=== PATIENT | male | born 1935 | race Caucasian/White ===

== ENCOUNTER 2020-07-12 06:48 | Observation (INO) | payer MEDICARE, BC ==
[2020-07-12] MEDS ORDERED: MORPHINE SULFATE 2 MG/ML SYRINGE IVP STA (07:19)
--- NOTE | 2020-07-12 07:25 | ED ---
General Adult HPI - General Chief complaint: Abdominal Pain Stated complaint: Abd Pain Time Seen by Provider: 07/12/20 07:01 Source: EMS Mode of arrival: EMS - History of Present Illness Initial comments: Dictation was produced using [employer] dictation software. please excuse any grammatical, word or spelling errors. This patient was cared for during a federal and state declared state of emergency secondary to Covid 19 Chief Complaint: Patient is an 85-year-old male with recently diagnosed new- onset ascites presents with abdominal pain. History of Present Illness: 85-year-old male. He was seen in the emergency department 5 days ago. At that time patient was evaluated and found to have new-onset ascites. Patient denies any history of liver cirrhosis. He does not have a extensive history of alcohol abuse. 4 days ago he had a paracentesis performed. He also had a CT of the abdomen and pelvis. His imaging was concerning for GI malignancy. He was discharged in stable condition.. He has a standing order for outpatient paracentesis once weekly. Patient states he is barely feels like it's falling again. He did not tell anybody and instead came directly to the emergency department. and patient are anxious about patient's paracentesis cytology results. Patient denies any constitutional symptoms. He reports whole abdominal pain. States the symptoms feel exactly as it did earlier this week just before he had paracentesis performed. The ROS documented in this emergency department record has been reviewed and confirmed by me. Those systems with pertinent positive or negative responses have been documented in the HPI. All other systems are other negative and/or noncontributory. PHYSICAL EXAM: General Impression: Alert and oriented x3, not in acute distress HEENT: Normocephalic atraumatic, extra-ocular movements intact, pupils equal and reactive to light bilaterally, mucous membranes moist. Cardiovascular: Heart regular rate and rhythm Chest: Able to complete full sentences, no retractions, no tachypnea Abdomen: abdomen soft, positive fluid wave, non-distended, no organomegaly Musculoskeletal: Pulses present and equal in all extremities, no peripheral edema Motor: no focal deficits noted Neurological: CN II-XII grossly intact, no focal motor or sensory deficits noted Skin: Intact with no visualized rashes Psych: Normal affect and mood ED course: 85-year-old male recently diagnosed new-onset ascites presents with abdominal pain. Patient and are very anxious about patient's cytology results. They've a follow-up appointment on July 23. Presents today with pain. He does not have any signs or symptoms to suggest bacterial peritonitis. Vital signs upon arrival shows heart rate of 12, rest of vital signs within acceptable limits. Patient is well-appearing at bedside. He does have positive fluid wave in whole abdominal palpatory tenderness. Chart was reviewed. Patient has any water for weekly paracentesis to be performed by interventional radiology. Laboratory evaluation obtained. CBC, metabolic panel is unremarkable. Urinalysis is negative. Everything appears to be at baseline. Patient's well- appearing at bedside. Discussed case with interventional radiology team. They will be able to perform paracentesis at some point today. They did not give me an exact date and time. Case is discussed with oncology who will be on consult. Oncology did not make any specific recommendations. Patient is agreeable for observation admission for symptom medical studies. We'll have oncology consulted for planning. 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 EKG interpretation: Ventricular rate 100, sinus rhythm, TN interval 166, QRS 90, QTC 420. No TN prolongation, no QTC prolongation, no ST or T-wave changes noted. EKG compared to 0, showing no changes. Overall, this EKG is unremarkable - Related Data Home Medications Medication Instructions Recorded Confirmed Bimatoprost [Lumigan .01% Ophth 1 drop RIGHT EYE HS@2100 07/07/20 07/12/20 Soln] Carboxymethylcellulose Sodium 1 drop RIGHT EYE QID 07/07/20 07/12/20 [Refresh Tears] Cholecalciferol [Vitamin D3] 400 unit PO W/BRKFST 07/07/20 07/12/20 Insulin Glargine,Hum.rec.anlog 30 unit SQ HS@209907/07/20 07/12/20 [Lantus Solostar] Magnesium 250 mg PO W/SUPPER 07/07/20 07/12/20 Ubidecarenone [Co Q-10] 100 mg PO W/LUNCH 07/07/20 07/12/20 Vitamin B Complex 1 cap PO W/SUPPER 07/07/20 07/12/20 amLODIPine [Norvasc] 5 mg PO BID-W/MEALS 07/07/20 07/12/20 sitaGLIPtin PHOSPHATE [Januvia] 50 mg PO DAILY 07/07/20 07/12/20 metFORMIN HCL [metFORMIN HCL ER] 500 mg PO BID 07/12/20 07/12/20 Allergies Allergy/AdvReac Type Severity Reaction Status Date / Time No Known Allergies Allergy Verified 07/12/20 07:47 Review of Systems ROS Statement: Those systems with pertinent positive or pertinent negative responses have been documented in the HPI. ROS Other: All systems not noted in ROS Statement are negative. Past Medical History Past Medical History: Diabetes Mellitus, Hypertension Additional Past Medical History / Comment(s): DM2 History of Any Multi-Drug Resistant Organisms: None Reported Past Surgical History: No Surgical Hx Reported Past Psychological History: No Psychological Hx Reported Smoking Status: Never smoker Past Alcohol Use History: None Reported Past Drug Use History: None Reported - Past Family History Mother Additional Family Medical History / Comment(s): from cancer Course Vital Signs 07/12/20 06:49 Temperature 99.5 F Pulse Rate 102 H Respiratory 19 Rate Blood Pressure 147/79 O2 Sat by Pulse 97 Oximetry Medical Decision Making - Lab Data Result diagrams: 07/12/20 07:31 07/12/20 07:31 Lab Results 07/12/20 07/12/20 07/12/20 Range/Units 07:31 07:31 07:31 WBC 9.3 (3.8-10.6) k/uL RBC 4.26 L (4.30-5.90) m/uL Hgb 12.3 L (13.0-17.5) gm/dL Hct 39.0 (39.0-53.0) % MCV 91.5 (80.0-100.0) fL MCH 29.0 (25.0-35.0) pg MCHC 31.7 (31.0-37.0) g/dL RDW 12.8 (11.5-15.5) % Plt Count 324 (150-450) k/uL Neutrophils % 78 % Lymphocytes % 11 % Monocytes % 7 % Eosinophils % 2 % Basophils % 1 % Neutrophils # 7.2 (1.3-7.7) k/uL Lymphocytes # 1.1 (1.0-4.8) k/uL Monocytes # 0.7 (0-1.0) k/uL Eosinophils # 0.2 (0-0.7) k/uL Basophils # 0.1 (0-0.2) k/uL Sodium 130 L (137-145) mmol/L Potassium 4.3 (3.5-5.1) mmol/L Chloride 97 L (98-107) mmol/L Carbon Dioxide 27 (22-30) mmol/L Anion Gap 6 mmol/L BUN 13 (9-20) mg/dL Creatinine 0.92 (0.66-1.25) mg/dL Est GFR (CKD-EPI)AfAm 88 (>60 ml/min/1.73 sqM) Est GFR (CKD-EPI)NonAf 76 (>60 ml/min/1.73 sqM) Glucose 113 H (74-99) mg/dL Plasma Lactic Acid Mathew 0.8 (0.7-2.0) mmol/L Calcium 8.2 L (8.4-10.2) mg/dL Magnesium 1.8 (1.6-2.3) mg/dL Total Bilirubin 0.6 (0.2-1.3) mg/dL AST 37 (17-59) U/L ALT 29 (4-49) U/L Alkaline Phosphatase 51 (38-126) U/L Total Protein 5.4 L (6.3-8.2) g/dL Albumin 2.6 L (3.5-5.0) g/dL Lipase 26 (23-300) U/L Urine Color Urine Appearance (Clear) Urine pH (5.0-8.0) Ur Specific [place] (1.001-1.035) Urine Protein (Negative) Urine Glucose (UA) (Negative) Urine Ketones (Negative) Urine Blood (Negative) Urine Nitrite (Negative) Urine Bilirubin (Negative) Urine Urobilinogen (<2.0) mg/dL Ur Leukocyte Esterase (Negative) 07/12/20 Range/Units 07:31 WBC (3.8-10.6) k/uL RBC (4.30-5.90) m/uL Hgb (13.0-17.5) gm/dL Hct (39.0-53.0) % MCV (80.0-100.0) fL MCH (25.0-35.0) pg MCHC (31.0-37.0) g/dL RDW (11.5-15.5) % Plt Count (150-450) k/uL Neutrophils % % Lymphocytes % % Monocytes % % Eosinophils % % Basophils % % Neutrophils # (1.3-7.7) k/uL Lymphocytes # (1.0-4.8) k/uL Monocytes # (0-1.0) k/uL Eosinophils # (0-0.7) k/uL Basophils # (0-0.2) k/uL Sodium (137-145) mmol/L Potassium (3.5-5.1) mmol/L Chloride (98-107) mmol/L Carbon Dioxide (22-30) mmol/L Anion Gap mmol/L BUN (9-20) mg/dL Creatinine (0.66-1.25) mg/dL Est GFR (CKD-EPI)AfAm (>60 ml/min/1.73 sqM) Est GFR (CKD-EPI)NonAf (>60 ml/min/1.73 sqM) Glucose (74-99) mg/dL Plasma Lactic Acid Mathew (0.7-2.0) mmol/L Calcium (8.4-10.2) mg/dL Magnesium (1.6-2.3) mg/dL Total Bilirubin (0.2-1.3) mg/dL AST (17-59) U/L ALT (4-49) U/L Alkaline Phosphatase (38-126) U/L Total Protein (6.3-8.2) g/dL Albumin (3.5-5.0) g/dL Lipase (23-300) U/L Urine Color Yellow Urine Appearance Clear (Clear) Urine pH 5.5 (5.0-8.0) Ur Specific [place] 1.020 (1.001-1.035) Urine Protein Trace H (Negative) Urine Glucose (UA) Negative (Negative) Urine Ketones Negative (Negative) Urine Blood Negative (Negative) Urine Nitrite Negative (Negative) Urine Bilirubin Negative (Negative) Urine Urobilinogen <2.0 (<2.0) mg/dL Ur Leukocyte Esterase Negative (Negative) Disposition Clinical Impression: Abdominal pain Disposition: ADMITTED IP TO THIS HOSP Condition: Fair Referrals: Caitlin Hines MD [Primary Care Provider] - 1-2 days Decision Time: 08:55
[2020-07-12 07:49] LABS: Basophils # (A) 0.1 k/uL (0-0.2); Basophils % (A) 1 %; Eosinophils # (A) 0.2 k/uL (0-0.7); Eosinophils % (A) 2 %; HGB 12.3 gm/dL (13.0-17.5); Lymphocytes # (A) 1.1 k/uL (1.0-4.8); Lymphocytes % (A) 11 %; MCHC 31.7 g/dL (31.0-37.0); MCV 91.5 fL (80.0-100.0); Mean Platelet Volume 8.1; Monocytes # (A) 0.7 k/uL (0-1.0); Monocytes % (A) 7 %; Neutrophils # (A) 7.2 k/uL (1.3-7.7); Neutrophils % (A) 78 %; Platelet Count 324 k/uL (150-450); RBC 4.26 m/uL (4.30-5.90); RDW 12.8 % (11.5-15.5); WBC 9.3 k/uL (3.8-10.6)
[2020-07-12 07:59] LABS: Appearance,Urine Clear (Clear); Bilirubin,Urine Negative (Negative); Blood,Urine Negative (Negative); Color,Urine Yellow; Glucose,Urine (UA) Negative (Negative); Ketones,Urine Negative (Negative); Leukocyte Esterase,Urine Negative (Negative); Nitrite,Urine Negative (Negative); PH, Urine 5.5 (5.0-8.0); Protein,Urine Trace (Negative); Urobilinogen,Urine <2.0 mg/dL (<2.0)
[2020-07-12 08:00] LABS: Albumin 2.6 g/dL (3.5-5.0); Calcium 8.2 mg/dL (8.4-10.2); Magnesium 1.8 mg/dL (1.6-2.3); Potassium 4.3 mmol/L (3.5-5.1); Total Bilirubin 0.6 mg/dL (0.2-1.3); Total Protein 5.4 g/dL (6.3-8.2)
[2020-07-12] MEDS ORDERED: ACETAMINOPHEN TAB 325 MG TAB PO PRN (08:51)
[2020-07-12] MEDS ORDERED: ONDANSETRON 4 MG/2 ML VIAL IVP PRN (08:51)
[2020-07-12] MEDS ORDERED: NALOXONE 0.4 MG/ML 1 ML VIAL IV PRN (08:51)
[2020-07-12] MEDS ORDERED: oxyCODONE-APAP 5-325MG 1 EACH TAB PO PRN (08:51)
--- NOTE | 2020-07-12 10:58 | US ---
EXAMINATION TYPE: US abdomen limited DATE OF EXAM: 07/12/2020 COMPARISON: EXAMINATION TYPE: US abdomen limited DATE OF EXAM: 07/12/2020 COMPARISON: 07/08/2020 CLINICAL HISTORY: please assess for fluid pocket. Ascites check Ascites seen with all 4 quadrants. IMPRESSION: 1. Ascites present all 4 quadrants.
[2020-07-12 10:59] LABS: INR 1.1 (<1.2); Prothrombin Time 10.8 sec (9.0-12.0)
[2020-07-12 12:45] VITALS: RESP 16
--- NOTE | 2020-07-12 12:49 | P.CONS ---
History of Present Illness - Reason for Consult Consult date: 07/12/20 Recurrent Malignant Ascites Requesting physician: Juan Hodge - Chief Complaint Symptomatic Ascites - History of Present Illness Mr. Acosta is a very pleasant 85-year-old male who recently found to have metastatic cancer after a positive cytology of ascites fluid. He looks younger than his stated age, chronic health conditions including IDDM type II and controlled HTN. He was recently discharged from the hospital after presenting with complaints of 14 pound weight gain and abdominal bloating, progressive over the last 8-9 days. Associated with a decreased appetite, intolerance to warm food, some early satiety. He was discharged on 07/10 after a paracentesis on 07/09 in which 5.9L of ascites fluid was removed. 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 Today during evaluation he is status post 6.4L removed. Review of Systems All systems: negative (HPi) Past Medical History Past Medical History: Diabetes Mellitus, Hypertension Additional Past Medical History / Comment(s): DM2 History of Any Multi-Drug Resistant Organisms: None Reported Past Surgical History: No Surgical Hx Reported Past Anesthesia/Blood Transfusion Reactions: No Reported Reaction Past Psychological History: No Psychological Hx Reported Smoking Status: Never smoker Past Alcohol Use History: None Reported Past Drug Use History: None Reported - Past Family History Mother Additional Family Medical History / Comment(s): from cancer Medications and Allergies Home Medications Medication Instructions Recorded Confirmed Type Bimatoprost [Lumigan .01% Ophth 1 drop RIGHT EYE HS@209907/07/20 07/12/20 History Soln] Carboxymethylcellulose Sodium 1 drop RIGHT EYE QID 07/07/20 07/12/20 History [Refresh Tears] Cholecalciferol [Vitamin D3] 400 unit PO W/BRKFST 07/07/20 07/12/20 History Insulin Glargine,Hum.rec.anlog 30 unit SQ HS@209907/07/20 07/12/20 History [Lantus Solostar] Magnesium 250 mg PO W/SUPPER 07/07/20 07/12/20 History Ubidecarenone [Co Q-10] 100 mg PO W/LUNCH 07/07/20 07/12/20 History Vitamin B Complex 1 cap PO W/SUPPER 07/07/20 07/12/20 History amLODIPine [Norvasc] 5 mg PO BID-W/MEALS 07/07/20 07/12/20 History sitaGLIPtin PHOSPHATE [Januvia] 50 mg PO DAILY 07/07/20 07/12/20 History metFORMIN HCL [metFORMIN HCL ER] 500 mg PO BID 07/12/20 07/12/20 History Allergies Allergy/AdvReac Type Severity Reaction Status Date / Time No Known Allergies Allergy Verified 07/12/20 13:03 Physical Exam Vitals: Vital Signs Temp Pulse Pulse Resp BP BP BP 07/12/20 11:15 98.3 F 98 16 138/72 07/12/20 10:17 18 07/12/20 09:41 98.4 F 81 18 143/72 07/12/20 09:16 97.8 F 89 16 126/62 07/12/20 06:49 99.5 F 102 H 19 147/79 Pulse Ox 07/12/20 11:15 98 07/12/20 10:17 07/12/20 09:41 96 07/12/20 09:16 97 07/12/20 06:49 97 Intake and Output 07/11/20 07/12/20 07/12/20 22:59 06:59 14:59 Other: Voiding Method Toilet # Voids 1 Weight 81.647 kg 81.647 kg - Constitutional General appearance: cooperative, no acute distress - EENT Eyes: EOMI, PERRLA ENT: hard of hearing, NA/AT, normal oropharynx - Neck Neck: normal ROM - Respiratory Respiratory: bilateral: diminished (BLL), rhonchi - Cardiovascular Rhythm: regular Heart sounds: normal: S1, S2 leg Peripheral Edema: bilateral: Trace - Gastrointestinal Abdominal Ascites General gastrointestinal: distended, hepatomegaly, tenderness - Integumentary Integumentary: pale - Neurologic Neurologic: CNII-XII intact - Musculoskeletal Musculoskeletal: strength equal bilaterally - Psychiatric Psychiatric: A&O x's 3, appropriate affect Results CBC & Chem 7: 07/12/20 07:31 07/12/20 07:31 Labs: Abnormal Lab Results - Last 24 Hours (Table) 07/12/20 07/12/20 07/12/20 Range/Units 07:31 07:31 07:31 RBC 4.26 L (4.30-5.90) m/uL Hgb 12.3 L (13.0-17.5) gm/dL Sodium 130 L (137-145) mmol/L Chloride 97 L (98-107) mmol/L Glucose 113 H (74-99) mg/dL Calcium 8.2 L (8.4-10.2) mg/dL Total Protein 5.4 L (6.3-8.2) g/dL Albumin 2.6 L (3.5-5.0) g/dL Urine Protein Trace H (Negative) Comments: Abdominal Ultrasound CT scan - abdomen: report reviewed CT scan - chest: report reviewed CT scan - pelvis: report reviewed Assessment and Plan Plan: Assessment and Plan: New Diagnosis of Metastatic Adenocarcinoma Cytology Positive from 07/08/20 Paracentesis - Path reveals consistent with upper GI versus Pancreatiobiliary origin - CT abdomen did reveal ascites, Omental caking, hepatomegaly suspicious for GI/peritoneal malignancy. Pending cytology on ascitic fluid. CT of the chest negative other than an 8 mm right subpleural nodule - Likely would benefit from EUS at outside hospital with Biopsy. Abdominal Ascites (Recurrent) - Re-presents 3 days after hospitalization with increased and symptomatic abdominal ascites - IR order for repeat paracentesis - As per [facility] - Malignant and consistent with metastatic adenocarcinoma - Status Post 5.9 L of fluid removed. on 07/08 CEA 0.7 - CA 19.9 1765 Plan: - Plan for Repeat Paracentesis Therapeutic - Status post today 6.4L - Recommend MRI of pancreas with and without contrast, and if primary is not identified EGD. Ifboth inconclusive then will send for EUS for Biopsy and upper GI evaluation at outside hospital. - Follow-up i made with Dr. Fuentes in office on 07/23 @3:45 - Standing Order for PRN Paracentesis - discussed with ER Physician - If patient is discharged will need Pain medication and bowel regimen at discharge please Long discussion with patient and regarding pathology results. Will await to discuss further with Dr. Fuentes regarding plan for EUS at outside hospital versus enough information to treat. If they do choose hospice care their concern is his recurrent abdominal ascites and the pain this causes, since we do not offer abdominal pleurex drains would consider referral to [facility] to place for palliative/hospice intent (if they choose this route). All options were discussed. The overall goal of any treatment being palliative ad his metastatic picture is not curable. They are sad and overwhelmed but understand and asking appropriate questions. Doctor attests: I performed a history and physical examination of this patient, developed impression and plan of care. Discussed with dictator. I agree with dictators note, documented as a scribe. Time with Patient: Greater than 30 (Path results, Oncologic options verus comfort care options)
--- NOTE | 2020-07-12 12:50 | US ---
EXAMINATION TYPE: US paracentesis abd w/image DATE OF EXAM: 07/12/2020 CLINICAL HISTORY: Ascites COMPARISON: Limited abdominal ultrasound 07/12/2020 DIRECTOR OF RETAIL MARKETING: Dr. Estrella Cee PROCEDURE: Preprocedure preliminary ultrasound imaging demonstrates large volume ascites. The procedure was discussed with the patient. The risks, complications, benefits, and alternatives we re discussed and any questions were answered. Informed consent was obtained. The patient was placed s upine on the ultrasound table and prepped and draped in the usual sterile fashion. All elements of maximal barrier technique were utilized. Under ultrasound guidance, access into the right lower quadrant was obtained with a 5 [place] one-step centesis catheter. Approximately 4.6 liters of clear serous fluid was removed. Catheter was removed and sterile bandage was applied. The patient was stable throughout the procedure and remained stable upon discharge from Department of Radiology. IMPRESSION: Successful ultrasound-guided paracentesis, with removal of 4.6 liters of clear serous fluid.
[2020-07-12] MEDS ORDERED: HYDROcodone/APAP 7.5-325MG 1 EACH TAB PO PRN (13:46)
[2020-07-12 14:32] VITALS: TEMP 98.1
[2020-07-12 15:27] VITALS: BP 131/76; PULSE 69
--- NOTE | 2020-07-12 20:39 | P.HPIM ---
History of Present Illness H&P Date: 07/12/20 Chief Complaint: Abdominal Disyension Patient is a 85-year-old male who was recently admitted with abdominal bloating and distention and was discharged on 07/08/2020. 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 Patient otherwise denied any complaints of fever or chills. Abdominal discomfort mainly. Patient does abdominal pain mainly due to distention.. Patient has a standing order for outpatient paracentesis once weekly. Patient is having increased abdominal distention for the past 2 days and came to ER for paracentesis. Denied any chest pain. Patient does have some shortness of breath on admission. Laboratory data showed WBC 9.3, hemoglobin 12.3, platelets 324 Sodium 130, potassium 4.3, bicarb is 97, BUN 13 and creatinine 0.92 Ultrasound-guided paracentesis was ordered. Oncology was consulted as well. 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 Chief Complaint: Patient is an 85-year-old male with recently diagnosed new-onset ascites presents with abdominal pain. Review of Systems Constitutional: Patient denies any fever or chills . No generalized weakness or weight loss. Abdomen: Patient denied nausea vomiting and diarrhea and abdominal pain. Abdominal distention Cardiovascular: Patient denies any chest pain or short of breath no palpitations. Respiratory: patient denied any cough or sputum production. + shortness of breath Neurologic: Patient denied any numbness or tingling headache. Musculoskeletal: Patient denies any complaints of joint swelling or deformity. Skin: Negative Psychiatric: Negative Endocrine: No heat or cold intolerance. No recent weight gain. Genitourinary: No dysuria or hematuria. All other 14 point ROS negative except the above Past Medical History Past Medical History: Diabetes Mellitus, Hypertension Additional Past Medical History / Comment(s): DM2 History of Any Multi-Drug Resistant Organisms: None Reported Past Surgical History: No Surgical Hx Reported Past Anesthesia/Blood Transfusion Reactions: No Reported Reaction Past Psychological History: No Psychological Hx Reported Smoking Status: Never smoker Past Alcohol Use History: None Reported Past Drug Use History: None Reported - Past Family History Mother Additional Family Medical History / Comment(s): from cancer Medications and Allergies Home Medications Medication Instructions Recorded Confirmed Type Bimatoprost [Lumigan .01% Ophth 1 drop RIGHT EYE HS@2100 07/07/20 07/21/20 History Soln] Carboxymethylcellulose Sodium 1 drop RIGHT EYE QID 07/07/20 07/21/20 History [Refresh Tears] Cholecalciferol [Vitamin D3] 400 unit PO W/BRKFST 07/07/20 07/21/20 History Insulin Glargine,Hum.rec.anlog 30 unit SQ HS@209907/07/20 07/21/20 History [Lantus Solostar] Magnesium 250 mg PO W/SUPPER 07/07/20 07/21/20 History Ubidecarenone [Co Q-10] 100 mg PO W/LUNCH 07/07/20 07/21/20 History Vitamin B Complex 1 cap PO W/SUPPER 07/07/20 07/21/20 History amLODIPine [Norvasc] 5 mg PO BID-W/MEALS 07/07/20 07/21/20 History sitaGLIPtin PHOSPHATE [Januvia] 50 mg PO DAILY 07/07/20 07/21/20 History Sennosides-Docusate Sodium 1 each PO BID PRN #30 tab 07/12/20 07/21/20 Rx [Senokot-S] metFORMIN HCL [metFORMIN HCL ER] 500 mg PO DAILY 07/12/20 07/21/20 History oxyCODONE-APAP 5-325MG [Percocet 1 each PO Q4HR PRN #16 tab 07/12/20 07/21/20 Rx 5-325 mg] Allergies Allergy/AdvReac Type Severity Reaction Status Date / Time No Known Allergies Allergy Verified 07/21/20 10:51 Physical Exam Vitals: Vital Signs Temp Pulse Pulse Resp BP BP BP 07/12/20 12:01 91 16 119/53 07/12/20 11:45 91 14 132/61 07/12/20 11:30 95 16 146/66 07/12/20 11:15 98.3 F 98 16 138/72 07/12/20 10:17 18 07/12/20 09:41 98.4 F 81 18 143/72 07/12/20 09:16 97.8 F 89 16 126/62 07/12/20 06:49 99.5 F 102 H 19 147/79 Pulse Ox 07/12/20 12:01 95 07/12/20 11:45 95 07/12/20 11:30 95 07/12/20 11:15 98 07/12/20 10:17 07/12/20 09:41 96 07/12/20 09:16 97 07/12/20 06:49 97 Intake and Output 07/11/20 07/12/20 07/12/20 22:59 06:59 14:59 Other: Voiding Method Toilet # Voids 1 Weight 81.647 kg 81.647 kg PHYSICAL EXAMINATION: Patient is lying in the bed comfortably, no acute distress, awake alert and kenneth ented.. HEENT: Normocephalic. Neck is supple. Pupils reactive. Nostrils clear. Oral cavity is moist. Ears reveal no drainage. Neck reveals no JVD, carotid bruits, or thyromegaly. CHEST EXAMINATION: Trachea is central. Symmetrical expansion. Lung pepe clear to auscultation and percussion. Bibasilar diminished air entry CARDIAC: Normal S1, S2 with no gallops. No murmurs ABDOMEN: Soft. Distended abdomen with fluid thrill.Bowel sounds normal. No organomegaly. No abdominal bruits. Extremities: reveal no edema. No clubbing or cyanosis Neurologically awake, alert, oriented x3 with well-coordinated movements. No focal deficits noted Skin: No rash or skin lesions. Psychiatric: Coperative. Nonsuicidal Musculoskeletal: No joint swelling or deformity. Normal range of motion. Results CBC & Chem 7: 07/12/20 07:31 07/12/20 07:31 Labs: Abnormal Lab Results - Last 24 Hours (Table) 07/12/20 07/12/20 07/12/20 Range/Units 07:31 07:31 07:31 RBC 4.26 L (4.30-5.90) m/uL Hgb 12.3 L (13.0-17.5) gm/dL Sodium 130 L (137-145) mmol/L Chloride 97 L (98-107) mmol/L Glucose 113 H (74-99) mg/dL Calcium 8.2 L (8.4-10.2) mg/dL Total Protein 5.4 L (6.3-8.2) g/dL Albumin 2.6 L (3.5-5.0) g/dL Urine Protein Trace H (Negative) Thrombosis Risk Factor Assmnt - Choose All That Apply Each Factor Represents 1 point: Age 41-60 years Other Risk Factors: Yes Each Risk Factor Represents 2 Points: Age 61-74 years, Malignancy Each Risk Factor Represents 3 Points: Age 75 years or older Thrombosis Risk Factor Assessment Total Risk Factor Score: 8 Thrombosis Risk Factor Assessment Level: High Risk Assessment and Plan Assessment: Newly diagnosed metastatic adenocarcinoma GI versus pancreatobiliary Recurrent ascites/malignant ascites Recent fluid cytology showing metastatic adenocarcinoma consistent with primary upper GI/pancreatobiliary tract origin. Elevated CEA 199 1765 Diabetes type 2 insulin-dependent Hypertension DVT prophylaxis with heparin subcu Plan: Ultrasound-guided paracentesis was ordered. Patient is status post paracentesis with 6.4 L fluid removal. Patient does have standing orders for IR guided paracentesis q. weekly. Patient was seen by oncology and recommended MRI of the pancreas with and without contrast for definitive diagnosis If primary is not identified with the EGD and also EUS for biopsy and upper GI evaluation at outside hospital was recommended. Patient will be continued on pain management and bowel regimen. - Recommend EUS for Biopsy and upper GI evaluation at outside hospital. - Follow-up i made with Dr. Fuentes in office on 07/23 @3:45 - Standing Order for PRN Paracentesis Time with Patient: Greater than 30
--- NOTE | 2020-07-12 20:42 | P.DS ---
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 Elevated CEA 199 [id number] Diabetes type 2 insulin-dependent Hypertension DVT prophylaxis with heparin subcu Hospital course Patient is a 85-year-old male who was recently admitted with abdominal bloating and distention and was discharged on 07/08/2020. 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 Patient otherwise denied any complaints of fever or chills. Abdominal discomfort mainly. Patient does abdominal pain mainly due to distention.. Patient has a standing order for outpatient paracentesis once weekly. Patient is having increased abdominal distention for the past 2 days and came to ER for paracentesis. Denied any chest pain. Patient does have some shortness of breath on admission. Laboratory data showed WBC 9.3, hemoglobin 12.3, platelets 324 Sodium 130, potassium 4.3, bicarb is 97, BUN 13 and creatinine 0.92 Ultrasound-guided paracentesis was ordered. Oncology was consulted as well. 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 Chief Complaint: Patient is an 85-year-old male with recently diagnosed new-onset ascites presents with abdominal pain. Ultrasound-guided paracentesis was ordered. Patient is status post paracentesis with 6.4 L fluid removal. Patient does have standing orders for IR guided paracentesis q. weekly. Patient was seen by oncology and recommended MRI of the pancreas with and without contrast for definitive diagnosis. Discussed with the patient and his at bedside in detail. About new diagnosis and follow-up plan as per oncology recommendations. If primary is not identified with the EGD and also EUS for biopsy and upper GI evaluation at outside hospital was recommended. Patient will be continued on pain management and bowel regimen. - Recommend EUS for Biopsy and upper GI evaluation at outside hospital. - Follow-up i made with Dr. Fuentes in office on 07/23 @3:45 - Standing Order for PRN Paracentesis. Discharge physical examination was done and vitals reviewed. Patient Condition at Discharge: Fair Plan - Discharge Summary Discharge Rx Participant: No New Discharge Prescriptions: New oxyCODONE-APAP 5-325MG [Percocet 5-325 mg] 1 each PO Q4HR PRN #16 tab PRN Reason: Severe Pain Sennosides-Docusate Sodium [Senokot-S] 1 each PO BID PRN #30 tab PRN Reason: Constipation Continue Ubidecarenone [Co Q-10] 100 mg PO W/LUNCH Bimatoprost [Lumigan .01% Ophth Soln] 1 drop RIGHT EYE HS@2100 sitaGLIPtin PHOSPHATE [Januvia] 50 mg PO DAILY amLODIPine [Norvasc] 5 mg PO BID-W/MEALS Vitamin B Complex 1 cap PO W/SUPPER Magnesium 250 mg PO W/SUPPER Cholecalciferol [Vitamin D3] 400 unit PO W/BRKFST Insulin Glargine,Hum.rec.anlog [Lantus Solostar] 30 unit SQ HS@2100 Carboxymethylcellulose Sodium [Refresh Tears] 1 drop RIGHT EYE QID metFORMIN HCL [metFORMIN HCL ER] 500 mg PO BID Discharge Medication List Bimatoprost [Lumigan .01% Ophth Soln] 1 drop RIGHT EYE HS@2100 07/07/20 [History] Carboxymethylcellulose Sodium [Refresh Tears] 1 drop RIGHT EYE QID 07/07/20 [History] Cholecalciferol [Vitamin D3] 400 unit PO W/BRKFST 07/07/20 [History] Insulin Glargine,Hum.rec.anlog [Lantus Solostar] 30 unit SQ HS@2100 07/07/20 [History] Magnesium 250 mg PO W/SUPPER 07/07/20 [History] Ubidecarenone [Co Q-10] 100 mg PO W/LUNCH 07/07/20 [History] Vitamin B Complex 1 cap PO W/SUPPER 07/07/20 [History] amLODIPine [Norvasc] 5 mg PO BID-W/MEALS 07/07/20 [History] sitaGLIPtin PHOSPHATE [Januvia] 50 mg PO DAILY 07/07/20 [History] Sennosides-Docusate Sodium [Senokot-S] 1 each PO BID PRN #30 tab 07/12/20 [Rx] metFORMIN HCL [metFORMIN HCL ER] 500 mg PO BID 07/12/20 [History] oxyCODONE-APAP 5-325MG [Percocet 5-325 mg] 1 each PO Q4HR PRN #16 tab 07/12/20 [Rx] Follow up Appointment(s)/Referral(s): Caitlin Hines MD [Primary Care Provider] - 1-2 days Activity/Diet/Wound Care/Special Instructions: There is a standing order for a weekly paracentesis with Interventional Radiology at [facility]. They can be contacted by calling the main hospital number and asking for the scheduling department. These appointments are being scheduled 10-14days out. Discharge Disposition: HOME SELF-CARE
[2020-07-12] MEDS ORDERED: SENNOSIDES-DOCUSATE SODIUM 1 EACH TAB PO SCH (21:00)
--- NOTE | 2020-07-15 07:32 | MR ---
EXAMINATION TYPE: MR pancreas / mrcp wo/w con DATE OF EXAM: 07/15/2020 COMPARISON: CT abdomen and pelvis July 07, 2020. Limited abdominal ultrasound earlier today. CT chest 4 days ago. HISTORY: Assess for Pancreatic cholangio cancer. CONTRAST: Standard multiplanar, multisequence MRI departmental protocol utilizing 7.5 mL intravenous Gadavist g adolinium contrast. Thin and thick slice MRCP imaging performed on MRI scanner. FINDINGS: Suboptimal as patient unable to hold breath. Liver/gallbladder/pancreas/biliary system: Liver is somewhat small in size. Some adjacent ascites rig ht lateral aspect. No suspicious solid or cystic mass. Gallbladder does not have intraluminal gallsto mike or surrounding inflammatory change. Pancreas shows generalized atrophy with multiple thin-walled cysts in the distal body. There is ductal dilatation in the proximal to mid body measuring up to 10 m m in dilatation. There is abrupt cut off due to obstructing calcification corresponding to CT image 2 8. Proximal to this there is extensive cystic change in the inferior head and uncinate process. No si gnificant intrahepatic or extra hepatic biliary dilatation. Other: Lung bases grossly clear. Simple parenchymal cysts scattered throughout both kidneys. Symmetri c diminished size and cortical thinning to left kidney. Largest exophytic 9.0 cm thin-walled cyst low er pole of the right kidney. Small amount of ascites greatest right infracolic gutter. No bowel dilat ation. Visualized osseous structures intact. Partial visualization of known AAA just above bifurcatio n. IMPRESSION: No suspicious biliary or intrahepatic mass or ductal dilatation. Findings of chronic panc reatitis noted. Innumerable cysts or cystic lesions greatest in prominence in the inferior head/uncin ate process and distal pancreatic body, would favor pseudocyst related to product of chronic pancreat itis. There is focal ductal dilatation appear secondary to mass effect related to a prominent glandul ar calcification at junction of pancreatic head and proximal body.
== END 2020-07-12 20:48 | disposition home or self-care (01) ==
LOC: EC 06:48 → 1SOBS 08:51
PROVIDERS: ADMIT Hospitalist; ATTEND Hospitalist
DX: C80.1 Malignant (primary) neoplasm, unspecified (principal); R18.0 Malignant ascites; K86.1 Other chronic pancreatitis; I10 Essential (primary) hypertension; E11.9 Type 2 diabetes mellitus without complications; R16.0 Hepatomegaly, not elsewhere classified; R97.0 Elevated carcinoembryonic antigen [CEA]; Z79.4 Long term (current) use of insulin; Z79.899 Other long term (current) drug therapy; Z80.9 Family history of malignant neoplasm, unspecified
CPT/HCPCS: 96374; 99285; 36415; 93005; 80053; 83605; 83690; 83735; 85025; 85610; 81003; 76705; 49083; 74183; G0378; J2270; A9585

== ENCOUNTER 2020-07-16 08:17 | Day surgery (SDC) | payer MEDICARE, BC ==
[2020-07-16 09:20] LABS: Mean Platelet Volume 7.8; Platelet Count 359 k/uL (150-450)
[2020-07-16 09:26] VITALS: TEMP 98.4
[2020-07-16 09:30] LABS: Prothrombin Time 10.2 sec (9.0-12.0)
[2020-07-16 10:27] VITALS: RESP 16
[2020-07-16] MEDS: ALBUMIN HUMAN 25% 50 ML in EMPTY BAG 1 BAG IVPB SCH ×3 (10:48→11:04)
[2020-07-16 11:53] VITALS: BP 128/68; PULSE 92
--- NOTE | 2020-07-16 12:28 | US ---
EXAMINATION TYPE: US paracentesis abd w/image DATE OF EXAM: 07/16/2020 COMPARISON: NONE HISTORY: Ascites. PROCEDURE: Maximal barrier technique was utilized. The skin overlying a suitable pocket of fluid was localized with ultrasound and the overlying skin was prepped and draped. Ultrasound was utilized with sterile technique. Lidocaine was used for local anesthesia and a skin consuelo made with a scalpel. Catheter was advanced under direct ultrasound guidance into a suitable pocket of fluid and approximately 4.3 liter s of serous fluid were removed. Catheter was withdrawn and hemostasis achieved. There is no immedia te complication; the patient is discharged in stable condition. IMPRESSION: STATUS POST ULTRASOUND GUIDED PARACENTESIS FOR PALLIATION OF ASCITES. THIS PROCEDURE WA S PERFORMED BY THE UNDERSIGNED.
== END 2020-07-16 11:35 | disposition home or self-care (01) ==
LOC: RADPROMAIN 08:17
PROVIDERS: ATTEND Internal Medicine Hematology & Oncology
DX: R18.8 Other ascites (principal)
CPT/HCPCS: 82947; 85049; 85610; 36415; 49083; P9047

== ENCOUNTER 2020-07-19 11:26 | Day surgery (SDC) | payer MEDICARE, BC ==
[2020-07-19 12:22] LABS: Glucose,Whole Blood 219 mg/dL (75-99)
[2020-07-19 12:31] VITALS: RESP 16; TEMP 98.2
[2020-07-19 14:01] VITALS: BP 118/61; PULSE 88
[2020-07-19] MEDS: ALBUMIN HUMAN 25% 50 ML in EMPTY BAG 1 BAG IVPB SCH ×2 (14:06→14:07)
--- NOTE | 2020-07-19 14:50 | US ---
EXAMINATION TYPE: US paracentesis abd w/image DATE OF EXAM: 07/19/2020 COMPARISON: NONE HISTORY: Ascites. PROCEDURE: Maximal barrier technique was utilized. The skin overlying a suitable pocket of fluid was localized with ultrasound and the overlying skin was prepped and draped. Ultrasound was utilized with sterile technique. Lidocaine was used for local anesthesia and a skin consuelo made with a scalpel. Catheter was advanced under direct ultrasound guidance into a suitable pocket of fluid and approximately 3.3 liter s of serous fluid were removed. Catheter was withdrawn and hemostasis achieved. There is no immedia te complication; the patient is discharged in stable condition. IMPRESSION: STATUS POST ULTRASOUND GUIDED PARACENTESIS FOR PALLIATION OF ASCITES. THIS PROCEDURE WA S PERFORMED BY THE UNDERSIGNED.
== END 2020-07-19 14:00 | disposition home or self-care (01) ==
LOC: RADPROMAIN 11:26
PROVIDERS: ATTEND Internal Medicine Hematology & Oncology
DX: R18.0 Malignant ascites (principal)
CPT/HCPCS: 49083

== ENCOUNTER 2020-07-21 08:30 | Inpatient (IN) | payer MEDICARE, BC ==
[2020-07-21] MEDS ORDERED: HYDROmorphone 0.5 MG/0.5 ML SYRINGE IVP STA (08:49)
--- NOTE | 2020-07-21 08:55 | ED ---
General Adult HPI - General Chief complaint: Shortness of Breath Stated complaint: TAYLOR Time Seen by Provider: 07/21/20 08:30 Source: patient, EMS, RN notes reviewed, old records reviewed Mode of arrival: EMS Limitations: no limitations - History of Present Illness Initial comments: This is an 85-year-old male who presents emergency Department with metastatic prostatic cancer to his abdomen. Patient states she's had ascites and had to have it drained. Patient states last and they drained it was on Wednesday. Patient states he's supposed to drink again on Wednesday but he comes in today because he been having difficulty breathing. Patient states that she's been on oxygen is feeling much better. Patient denies any fever chills per patient denies any chest pain or palpitations. Patient denies any vomiting or diarrhea. States she's been constipated because his been on Percocet. - Related Data Home Medications Medication Instructions Recorded Confirmed Bimatoprost [Lumigan .01% Ophth 1 drop RIGHT EYE HS@2100 07/07/20 07/19/20 Soln] Carboxymethylcellulose Sodium 1 drop RIGHT EYE QID 07/07/20 07/19/20 [Refresh Tears] Cholecalciferol [Vitamin D3] 400 unit PO W/BRKFST 07/07/20 07/19/20 Insulin Glargine,Hum.rec.anlog 30 unit SQ HS@209907/07/20 07/19/20 [Lantus Solostar] Magnesium 250 mg PO W/SUPPER 07/07/20 07/19/20 Ubidecarenone [Co Q-10] 100 mg PO W/LUNCH 07/07/20 07/19/20 Vitamin B Complex 1 cap PO W/SUPPER 07/07/20 07/19/20 amLODIPine [Norvasc] 5 mg PO BID-W/MEALS 07/07/20 07/19/20 sitaGLIPtin PHOSPHATE [Januvia] 50 mg PO DAILY 07/07/20 07/19/20 metFORMIN HCL [metFORMIN HCL ER] 500 mg PO DAILY 07/12/20 07/19/20 Previous Rx's Medication Instructions Recorded Sennosides-Docusate Sodium 1 each PO BID PRN #30 tab 07/12/20 [Senokot-S] oxyCODONE-APAP 5-325MG [Percocet 1 each PO Q4HR PRN #16 tab 07/12/20 5-325 mg] Allergies Allergy/AdvReac Type Severity Reaction Status Date / Time No Known Allergies Allergy Verified 07/19/20 12:27 Review of Systems ROS Statement: Those systems with pertinent positive or pertinent negative responses have been documented in the HPI. ROS Other: All systems not noted in ROS Statement are negative. Past Medical History Past Medical History: Cancer, Diabetes Mellitus, Hypertension Additional Past Medical History / Comment(s): DM2, new diagnosis of cancer last week, possibly pancreas per patient History of Any Multi-Drug Resistant Organisms: None Reported Past Surgical History: No Surgical Hx Reported Additional Past Surgical History / Comment(s): large volume paracentesis times 3, colonoscopy Past Anesthesia/Blood Transfusion Reactions: No Reported Reaction Past Psychological History: No Psychological Hx Reported Smoking Status: Never smoker Past Alcohol Use History: None Reported Past Drug Use History: None Reported - Past Family History Mother Family Medical History: Cancer General Exam - General Exam Comments Initial Comments: GENERAL: Patient is well-developed and well-nourished. Patient is nontoxic and well- hydrated and is in no acute distress. ENT: Neck is soft and supple. No significant lymphadenopathy is noted. Oropharynx is clear. Moist mucous membranes. Neck has full range of motion without eliciting any pain. EYES: The sclera were anicteric and conjunctiva were pink and moist. Extraocular movements were intact and pupils were equal round and reactive to light. Eyelids were unremarkable. PULMONARY: Unlabored respirations. Good breath sounds bilaterally. No audible rales rhonchi or wheezing was noted. CARDIOVASCULAR: There is a regular rate and rhythm without any murmurs gallops or rubs. ABDOMEN: Abdomen is distended typical of ascites SKIN: Skin is clear with no lesions or rashes and otherwise unremarkable. NEUROLOGIC: Patient is alert and oriented x3. Cranial nerves II through XII are grossly intact. Motor and sensory are also intact. Normal speech, volume and content. Symmetrical smile. MUSCULOSKELETAL: Normal extremities with adequate strength and full range of motion. No lower extremity swelling or edema. No calf tenderness. LYMPHATICS: No significant lymphadenopathy is noted PSYCHIATRIC: Normal psychiatric evaluation. Limitations: no limitations Course Vital Signs 07/21/20 07/21/20 07/21/20 08:31 08:35 09:11 Temperature 98.6 F Pulse Rate 87 89 Respiratory 16 18 18 Rate Blood Pressure 123/67 119/69 O2 Sat by Pulse 93 L 98 Oximetry 07/21/20 10:07 Temperature Pulse Rate 85 Respiratory 16 Rate Blood Pressure 105/52 O2 Sat by Pulse 100 Oximetry Medical Decision Making - Medical Decision Making EKG shows normal sinus rhythm at 80 bpm NE interval 282 QRS is 100 QT interval 346 QTC is 418. Patient's EKG shows elevation or depression. Chest x-ray shows no acute abnormality. CT of the chest shows no PE but does show some ascites. I spoke with Dr. Manzanares he agreed to admit the patient admitted the patient I wrote admitting orders - Lab Data Result diagrams: 07/21/20 08:55 07/21/20 08:55 Lab Results 07/21/20 07/21/20 07/21/20 Range/Units 08:55 08:55 08:55 WBC 13.1 H (3.8-10.6) k/uL RBC 4.68 (4.30-5.90) m/uL Hgb 13.1 (13.0-17.5) gm/dL Hct 41.6 (39.0-53.0) % MCV 89.0 (80.0-100.0) fL MCH 28.1 (25.0-35.0) pg MCHC 31.6 (31.0-37.0) g/dL RDW 13.1 (11.5-15.5) % Plt Count 488 H (150-450) k/uL Neutrophils % 84 % Lymphocytes % 7 % Monocytes % 6 % Eosinophils % 1 % Basophils % 1 % Neutrophils # 10.9 H (1.3-7.7) k/uL Lymphocytes # 0.9 L (1.0-4.8) k/uL Monocytes # 0.7 (0-1.0) k/uL Eosinophils # 0.1 (0-0.7) k/uL Basophils # 0.1 (0-0.2) k/uL PT 10.4 (9.0-12.0) sec INR 1.0 (<1.2) APTT 23.6 (22.0-30.0) sec D-Dimer 5.01 H (<0.60) mg/L FEU Sodium 123 L (137-145) mmol/L Potassium 5.4 H (3.5-5.1) mmol/L Chloride 93 L (98-107) mmol/L Carbon Dioxide 21 L (22-30) mmol/L Anion Gap 9 mmol/L BUN 29 H (9-20) mg/dL Creatinine 1.21 (0.66-1.25) mg/dL Est GFR (CKD-EPI)AfAm 63 (>60 ml/min/1.73 sqM) Est GFR (CKD-EPI)NonAf 55 (>60 ml/min/1.73 sqM) Glucose 214 H (74-99) mg/dL Plasma Lactic Acid Mathew (0.7-2.0) mmol/L Calcium 8.3 L (8.4-10.2) mg/dL Magnesium 2.1 (1.6-2.3) mg/dL Total Bilirubin 0.6 (0.2-1.3) mg/dL AST 27 (17-59) U/L ALT 18 (4-49) U/L Alkaline Phosphatase 59 (38-126) U/L Troponin I (0.000-0.034) ng/mL Total Protein 5.3 L (6.3-8.2) g/dL Albumin 2.6 L (3.5-5.0) g/dL 07/21/20 07/21/20 Range/Units 08:55 08:55 WBC (3.8-10.6) k/uL RBC (4.30-5.90) m/uL Hgb (13.0-17.5) gm/dL Hct (39.0-53.0) % MCV (80.0-100.0) fL MCH (25.0-35.0) pg MCHC (31.0-37.0) g/dL RDW (11.5-15.5) % Plt Count (150-450) k/uL Neutrophils % % Lymphocytes % % Monocytes % % Eosinophils % % Basophils % % Neutrophils # (1.3-7.7) k/uL Lymphocytes # (1.0-4.8) k/uL Monocytes # (0-1.0) k/uL Eosinophils # (0-0.7) k/uL Basophils # (0-0.2) k/uL PT (9.0-12.0) sec INR (<1.2) APTT (22.0-30.0) sec D-Dimer (<0.60) mg/L FEU Sodium (137-145) mmol/L Potassium (3.5-5.1) mmol/L Chloride (98-107) mmol/L Carbon Dioxide (22-30) mmol/L Anion Gap mmol/L BUN (9-20) mg/dL Creatinine (0.66-1.25) mg/dL Est GFR (CKD-EPI)AfAm (>60 ml/min/1.73 sqM) Est GFR (CKD-EPI)NonAf (>60 ml/min/1.73 sqM) Glucose (74-99) mg/dL Plasma Lactic Acid Mathew 2.4 H* (0.7-2.0) mmol/L Calcium (8.4-10.2) mg/dL Magnesium (1.6-2.3) mg/dL Total Bilirubin (0.2-1.3) mg/dL AST (17-59) U/L ALT (4-49) U/L Alkaline Phosphatase (38-126) U/L Troponin I <0.012 (0.000-0.034) ng/mL Total Protein (6.3-8.2) g/dL Albumin (3.5-5.0) g/dL Disposition Clinical Impression: Ascites, Dyspnea, Hyponatremia Disposition: ADMITTED IP TO THIS HOSP Referrals: Caitlin Hines MD [Primary Care Provider] - 1-2 days Time of Disposition: 10:41
[2020-07-21 09:04] LABS: Basophils # (A) 0.1 k/uL (0-0.2); Basophils % (A) 1 %; Eosinophils # (A) 0.1 k/uL (0-0.7); Eosinophils % (A) 1 %; HCT 41.6 % (39.0-53.0); HGB 13.1 gm/dL (13.0-17.5); Lymphocytes # (A) 0.9 k/uL (1.0-4.8); Lymphocytes % (A) 7 %; MCH 28.1 pg (25.0-35.0); MCHC 31.6 g/dL (31.0-37.0); Mean Platelet Volume 7.5; Monocytes # (A) 0.7 k/uL (0-1.0); Monocytes % (A) 6 %; Neutrophils # (A) 10.9 k/uL (1.3-7.7); Neutrophils % (A) 84 %; Platelet Count 488 k/uL (150-450); RBC 4.68 m/uL (4.30-5.90); RDW 13.1 % (11.5-15.5); WBC 13.1 k/uL (3.8-10.6)
[2020-07-21 09:15] LABS: Albumin 2.6 g/dL (3.5-5.0); Calcium 8.3 mg/dL (8.4-10.2); Magnesium 2.1 mg/dL (1.6-2.3); Potassium 5.4 mmol/L (3.5-5.1); Total Bilirubin 0.6 mg/dL (0.2-1.3); Total Protein 5.3 g/dL (6.3-8.2)
[2020-07-21 09:22] LABS: Partial Thromboplastin Time 23.6 sec (22.0-30.0); Prothrombin Time 10.4 sec (9.0-12.0)
--- NOTE | 2020-07-21 09:28 | XR ---
EXAMINATION TYPE: XR chest 2V DATE OF EXAM: 07/21/2020 COMPARISON: 07/07/2020 INDICATION: Difficulty breathing TECHNIQUE: Frontal and lateral views of the chest are obtained. FINDINGS: The heart size is normal. The pulmonary vasculature is normal. Some mild stable appearing increased lung markings are at the right costophrenic angle. This could be chronic.. Some minimal left costophrenic angle increased lung markings are present. Consider atelec tasis IMPRESSION: 1. Mild costophrenic angle infiltrates which are nonspecific. Consider atelectasis and chronic change s.
[2020-07-21 09:31] LABS: D-Dimer 5.01 mg/L FEU (<0.60)
--- NOTE | 2020-07-21 10:36 | CT ---
CT CHEST FOR PULMONARY EMBOLISM. EXAMINATION TYPE: CT chest angio for PE DATE OF EXAM: 07/21/2020 INDICATION: SOB, recent diagnosis of CA (possibly pancreas) CT DLP: 306.2 mGycm, Automated exposure control for dose reduction was used. CONTRAST: Patient injected with 100 mL of Isovue 370. COMPARISON: None TECHNIQUE: CT of the chest is performed on a spiral scan at 2 mm thick sections. Study is performed with intravenous contrast timed for evaluation for pulmonary embolism. This will limit additional po rtions of the evaluation. 3-D MIP images reconstructed by the technologist are reviewed on the compu ter in the coronal and sagittal planes. FINDINGS: No persistent filling defects are evident to suggest an acute pulmonary embolism. No mediastinal or hilar adenopathy enlarged by CT criteria is evident. The ascending aorta diameter at the level of the main pulmonary artery is 2.4 cm. The main pulmonary artery diameter at the bifur cation is 2.9 cm. There is some mild nonspecific infiltrate within the right lower lobe. Minimal increased lung marking s are in the left base as well. This could be chronic. Limited CT section through the upper abdomen. Ascites is present. Pancreas is out of the [id number] w and cannot be evaluated for acute pancreatitis. IMPRESSIONS: 1. No acute pulmonary embolism. 2. Mild nonspecific peripheral lower lobe increased lung markings. Follow-up CT chest in 3 months is recommended for reevaluation. 3. Ascites.
[2020-07-21] MEDS ORDERED: SODIUM CHLORIDE 0.9% 1,000 ML IV ONE (10:42)
[2020-07-21] MEDS ORDERED: ALPRAZolam 0.25 MG TAB PO PRN (14:10)
[2020-07-21] MEDS ORDERED: polyethylene glycoL 3350 17 GM POWD.PACK PO STA (14:12)
[2020-07-21] MEDS: oxyCODONE-APAP 5-325MG 1 EACH TAB PO PRN ×2 (15:57→22:21)
[2020-07-21 16:31] LABS: Glucose,Whole Blood 175 mg/dL (75-99)
[2020-07-21] MEDS: amLODIPine 5 MG TAB PO SCH (17:23)
[2020-07-21] MEDS ORDERED: NON FORMULARY DRUG (Vitamin B Complex [Vitamin B Complex] 1 EACH Capsule) PO SCH (17:30)
[2020-07-21] MEDS: INSULIN ASPART (NovoLOG) 100 UNIT/ML VIAL SQ SCH ×2 (17:58→20:32)
[2020-07-21] MEDS: MAGNESIUM OXIDE 400 MG TAB PO SCH (17:58)
[2020-07-21] MEDS: ARTIFICIAL TEARS-HYPROMELLOSE DROPS 15 ML BTL RIGHT EYE SCH ×2 (17:58→20:33)
--- NOTE | 2020-07-21 19:35 | P.HPIM ---
History of Present Illness H&P Date: 07/21/20 Chief Complaint: TAYLOR Patient is a 85-year-old male who was recently admitted with abdominal bloating and distention and was discharged on 07/08/2020. 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 Patient was again admitted 07/18/2020 with worsening ascites and underwent therapeutic paracentesis and was discharged . Patient has a standing order for outpatient paracentesis once weekly. Patient is having increased abdominal distention for the past 2 days and came to ER for paracentesis. Denied any chest pain.Patient otherwise denied any complaints of fever or chills. Abdominal discomfort mainly. Patient does abdominal pain mainly due to distention.. Patient does have shortness of breath on admission. Laboratory data showed WBC 13.1, hemoglobin 13.1, platelets 488 D-dimer 5.01 Sodium 123, potassium 5.4, chloride 93, bicarb is 21, BUN 29, creatinine 1.21 Lactic acid 2.4 Troponin x1- Liver enzymes are within normal limits. 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 Chief Complaint: Patient is an 85-year-old male with recently diagnosed new-onset ascites presents with abdominal pain. MRI of the liver 0n 07/19/20 showed no suspicious biliary intrahepatic mass or ductal dilatation. Findings of chronic pancreatitis noted. Innumerable cysts or cystic lesions greatest in prominence in the inferior head/uncinate process and distal pancreatic body, would favor pseudocyst related to product of chronic pancreatitis. There is focal ductal dilatation appears secondary to mass-effect related to a prominent glandular calcification at the junction of the pancreatic head and proximal body. Chest x-ray showed mild costophrenic angle infiltrates which are nonspecific. Consider atelectasis and chronic changes. CT angiogram showed no acute pulmonary embolism Mild nonspecific peripheral lower lobe increased lung markings. Follow-up CT chest in 3 months is recommended for reevaluation. Ascites. Review of Systems Constitutional: Patient denies any fever or chills . No generalized weakness or weight loss. Abdomen: Patient denied nausea vomiting and diarrhea and abdominal pain.Abdom inal distention Cardiovascular: Patient denies any chest pain or short of breath no palpitations. Respiratory: patient denied any cough or sputum production. + shortness of breath Neurologic: Patient denied any numbness or tingling headache. Musculoskeletal: Patient denies any complaints of joint swelling or deformity. Skin: Negative Psychiatric: Negative Endocrine: No heat or cold intolerance. No recent weight gain. Genitourinary: No dysuria or hematuria. All other 14 point ROS negative except the above Past Medical History Past Medical History: Cancer, Diabetes Mellitus, Hypertension Additional Past Medical History / Comment(s): DM2, new diagnosis of cancer last week, possibly pancreas per patient History of Any Multi-Drug Resistant Organisms: None Reported Past Surgical History: No Surgical Hx Reported Additional Past Surgical History / Comment(s): large volume paracentesis times 3, colonoscopy Past Anesthesia/Blood Transfusion Reactions: No Reported Reaction Past Psychological History: No Psychological Hx Reported Smoking Status: Never smoker Past Alcohol Use History: None Reported Past Drug Use History: None Reported - Past Family History Mother Family Medical History: Cancer Medications and Allergies Home Medications Medication Instructions Recorded Confirmed Type Bimatoprost [Lumigan .01% Ophth 1 drop RIGHT EYE HS@209907/07/20 07/21/20 History Soln] Carboxymethylcellulose Sodium 1 drop RIGHT EYE QID 07/07/20 07/21/20 History [Refresh Tears] Cholecalciferol [Vitamin D3] 400 unit PO W/BRKFST 07/07/20 07/21/20 History Insulin Glargine,Hum.rec.anlog 30 unit SQ HS@209907/07/20 07/21/20 History [Lantus Solostar] Magnesium 250 mg PO W/SUPPER 07/07/20 07/21/20 History Ubidecarenone [Co Q-10] 100 mg PO W/LUNCH 07/07/20 07/21/20 History Vitamin B Complex 1 cap PO W/SUPPER 07/07/20 07/21/20 History amLODIPine [Norvasc] 5 mg PO BID-W/MEALS 07/07/20 07/21/20 History sitaGLIPtin PHOSPHATE [Januvia] 50 mg PO DAILY 07/07/20 07/21/20 History Sennosides-Docusate Sodium 1 each PO BID PRN #30 tab 07/12/20 07/21/20 Rx [Senokot-S] metFORMIN HCL [metFORMIN HCL ER] 500 mg PO DAILY 09/25/20 10/04/20 History oxyCODONE-APAP 5-325MG [Percocet 1 each PO Q4HR PRN #16 tab 07/12/20 07/21/20 Rx 5-325 mg] Allergies Allergy/AdvReac Type Severity Reaction Status Date / Time No Known Allergies Allergy Verified 07/21/20 10:51 Physical Exam Vitals: Vital Signs Temp Pulse Pulse Resp BP BP Pulse Ox 07/21/20 11:51 98.6 F 92 119/73 99 07/21/20 11:28 89 16 105/59 100 07/21/20 10:07 85 16 105/52 100 07/21/20 09:11 89 18 119/69 98 07/21/20 08:35 18 07/21/20 08:31 98.6 F 87 16 123/67 93 L Intake and Output 07/21/20 07/21/20 07/21/20 06:59 14:59 22:59 Other: Voiding Method Toilet Toilet # Voids 3 Weight 83.915 kg PHYSICAL EXAMINATION: Patient is lying in the bed comfortably, no acute distress, awake alert and oriented.. HEENT: Normocephalic. Neck is supple. Pupils reactive. Nostrils clear. Oral cavity is moist. Ears reveal no drainage. Neck reveals no JVD, carotid bruits, or thyromegaly. CHEST EXAMINATION: Trachea is central. Symmetrical expansion.Bibasilar diminished air entry Lung pepe clear to auscultation and percussion. CARDIAC: Normal S1, S2 with no gallops. No murmurs ABDOMEN: Soft.Distended with fluid thrill. Bowel sounds normal. No organomegaly. No abdominal bruits. Extremities: reveal no edema. No clubbing or cyanosis Neurologically awake, alert, oriented x3 with well-coordinated movements. No focal deficits noted Skin: No rash or skin lesions. Psychiatric: Coperative. Nonsuicidal Musculoskeletal: No joint swelling or deformity. Normal range of motion. Results CBC & Chem 7: 07/21/20 08:55 07/21/20 08:55 Labs: Abnormal Lab Results - Last 24 Hours (Table) 07/21/20 07/21/20 07/21/20 Range/Units 08:55 08:55 08:55 WBC 13.1 H (3.8-10.6) k/uL Plt Count 488 H (150-450) k/uL Neutrophils # 10.9 H (1.3-7.7) k/uL Lymphocytes # 0.9 L (1.0-4.8) k/uL D-Dimer 5.01 H (<0.60) mg/L FEU Sodium 123 L (137-145) mmol/L Potassium 5.4 H (3.5-5.1) mmol/L Chloride 93 L (98-107) mmol/L Carbon Dioxide 21 L (22-30) mmol/L BUN 29 H (9-20) mg/dL Glucose 214 H (74-99) mg/dL POC Glucose (mg/dL) (75-99) mg/dL Plasma Lactic Acid Mathew (0.7-2.0) mmol/L Calcium 8.3 L (8.4-10.2) mg/dL Total Protein 5.3 L (6.3-8.2) g/dL Albumin 2.6 L (3.5-5.0) g/dL 07/21/20 07/21/20 Range/Units 08:55 16:29 WBC (3.8-10.6) k/uL Plt Count (150-450) k/uL Neutrophils # (1.3-7.7) k/uL Lymphocytes # (1.0-4.8) k/uL D-Dimer (<0.60) mg/L FEU Sodium (137-145) mmol/L Potassium (3.5-5.1) mmol/L Chloride (98-107) mmol/L Carbon Dioxide (22-30) mmol/L BUN (9-20) mg/dL Glucose (74-99) mg/dL POC Glucose (mg/dL) 175 H (75-99) mg/dL Plasma Lactic Acid Mathew 2.4 H* (0.7-2.0) mmol/L Calcium (8.4-10.2) mg/dL Total Protein (6.3-8.2) g/dL Albumin (3.5-5.0) g/dL Thrombosis Risk Factor Assmnt - Choose All That Apply Each Factor Represents 1 point: Sepsis (< 1month), Swollen legs (current) Each Risk Factor Represents 2 Points: Malignancy Each Risk Factor Represents 3 Points: Age 75 years or older Thrombosis Risk Factor Assessment Total Risk Factor Score: 7 Thrombosis Risk Factor Assessment Level: High Risk Assessment and Plan Assessment: Newly diagnosed metastatic adenocarcinoma GI versus pancreatobiliary Recurrent ascites/malignant ascites Hyponatremia likely hypervolemic Recent fluid cytology showing metastatic adenocarcinoma consistent with primary upper GI/pancreatobiliary tract origin. Elevated CEA 199 1765 Diabetes type 2 insulin-dependent Hypertension DVT prophylaxis with heparin subcu Plan: Patient will be continued pain management and bowel regimen. Continue with Percocet and long-acting oxycodone was added. IR guided paracentesis was ordered. Patient had recent MRI of the pancreas without any definitive diagnosis. Patient may need upper GI evaluation with EUS at outside hospital. Oncology was consulted. May need transfer to tertiary facility after paracentesis. Time with Patient: Greater than 30
[2020-07-21 20:22] LABS: Glucose,Whole Blood 230 mg/dL (75-99)
[2020-07-21] MEDS: oxyCODONE ER 15 MG TAB.ER.12H PO SCH (20:32)
[2020-07-21] MEDS: LATANOPROST 0.005% OPHTH DROPS 2.5 ML BTL RIGHT EYE SCH (20:33)
[2020-07-21] MEDS ORDERED: INSULIN DETEMIR (LEVEMIR) 100 UNIT/ML SYR SQ SCH (21:00)
[2020-07-22] MEDS: INSULIN ASPART (NovoLOG) 100 UNIT/ML VIAL SQ SCH ×4 (07:21→20:56)
[2020-07-22 07:23] LABS: Glucose,Whole Blood 75 mg/dL (75-99)
[2020-07-22] MEDS: ARTIFICIAL TEARS-HYPROMELLOSE DROPS 15 ML BTL RIGHT EYE SCH ×4 (07:27→21:44)
[2020-07-22] MEDS: amLODIPine 5 MG TAB PO SCH (07:27)
[2020-07-22] MEDS: CHOLECALCIFEROL 400 UNIT TAB PO SCH (07:27)
[2020-07-22] MEDS ORDERED: metFORMIN 500 MG TAB PO SCH (07:30)
[2020-07-22 08:58] LABS: Glucose,Whole Blood 107 mg/dL (75-99)
[2020-07-22] MEDS ORDERED: LINAGLIPTIN 5 MG TABLET PO SCH (09:00)
[2020-07-22] MEDS: oxyCODONE ER 15 MG TAB.ER.12H PO SCH ×2 (09:13→21:44)
[2020-07-22] MEDS: SENNOSIDES-DOCUSATE SODIUM 1 EACH TAB PO PRN ×2 (10:04→21:44)
[2020-07-22 11:29] LABS: Glucose,Whole Blood 114 mg/dL (75-99)
[2020-07-22] MEDS ORDERED: NON FORMULARY DRUG (Ubidecarenone [Co Q-10] 100 MG Capsule) PO SCH (12:30)
[2020-07-22] MEDS ORDERED: polyethylene glycoL 3350 17 GM POWD.PACK PO PRN (13:31)
[2020-07-22] MEDS ORDERED: SENNOSIDES 8.6 MG TAB PO PRN (13:31)
[2020-07-22] MEDS ORDERED: KETOROLAC 15 MG/ML 1 ML VIAL IVP PRN (13:49)
[2020-07-22] MEDS: LACTULOSE 20 GM/30 ML CUP PO SCH ×2 (14:08→21:44)
--- NOTE | 2020-07-22 14:45 | P.PN ---
Subjective 85-year-old pleasant gentleman was admitted to for pain control, abdominal distention, ascites. And some mild shortness of breath. Patient is presently on to discharge and he doesn't any oxygen at home. We will discontinue on's in and see how patient feels and will ablate the patient. Patient most probably has pancreatic cancer although this was not proven by any biopsy as his previous endoscopic ultrasound did not reveal any adenocarcinoma of the pancreas although patient has a highly elevated CA-19-9. Oncology evaluate the patient. They recommended repeat endoscopic ultrasound of the pancreatic mass. Had a lengthy discussion with the patient patient doesn't want to pursue any more biopsy at any more further testing and doesn't want to pursue any treatment for pancreatic cancer. 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 Patient is bit hyponatremic initially ordered basic metabolic profile testing that patient will doesn't wanted to pursue any other treatment and wanted hospice only and consulting hospice and will discontinue any further testing at this time. Had a lengthy discussion with the patient and patient's was at bedside. Patient is quite a bit constipated didn't move his bowels for last 7 days Constitutional: Denied any fatigue denied any fever. Cardio vascular: denied any chest pain, palpitations Gastrointestinal denied any nausea vomiting Pulmonary: Denied any shortness of breath cough Neurologic denied any new focal deficits All inpatient medications were reviewed and appropriate changes in these medications as dictated in the interval history and assessment and plan. Objective - Vital Signs Vital signs: Vital Signs Temp 98.8 F 07/22/20 07:00 Pulse 108 H 07/22/20 07:00 Resp 18 07/22/20 07:00 BP 109/65 07/22/20 07:00 Pulse Ox 95 07/22/20 07:00 Intake & Output 07/21/20 07/22/20 07/22/20 18:59 06:59 18:59 Intake Total 225 Balance 225 Weight 83.915 kg Intake: Intake, IV Titration 225 Amount Sodium Chloride 0.9% 1, 225 000 ml @ 75 mls/hr IV . [id number] Rx#:[id number] Other: Voiding Method Toilet # Voids 3 1 1 - Exam PHYSICAL EXAMINATION: GENERAL: The patient is alert and oriented x3, not in any acute distress. Well developed, well nourished. HEENT: Pupils are round and equally reacting to light. EOMI. No scleral icterus. No conjunctival pallor. Normocephalic, atraumatic. No pharyngeal erythema. No thyromegaly. CARDIOVASCULAR: S1 and S2 present. No murmurs, rubs, or gallops. PULMONARY: Chest is clear to auscultation, no wheezing or crackles. ABDOMEN: Is distended does have some ascites bowel sounds are present, . No palpable organomegaly. MUSCULOSKELETAL: No joint swelling or deformity. EXTREMITIES: No cyanosis, clubbing, or pedal edema. NEUROLOGICAL: Gross neurological examination did not reveal any focal deficits. SKIN: No rashes. - Labs CBC & Chem 7: 07/21/20 08:55 07/21/20 08:55 Labs: Abnormal Lab Results - Last 24 Hours (Table) 07/21/20 07/21/20 07/22/20 Range/Units 16:29 20:20 08:56 POC Glucose (mg/dL) 175 H 230 H 107 H (75-99) mg/dL 07/22/20 Range/Units 11:28 POC Glucose (mg/dL) 114 H (75-99) mg/dL Assessment and Plan Plan: Newly diagnosed metastatic adenocarcinoma GI versus pancreatobiliary, patient doesn't want to pursue any more treatment will consult hospice as per request of the patient. Patient doesn't want to pursue any more testing either. Recurrent ascites/malignant ascites, will order ultrasound-guided paracentesis discuss with the gastroenterology for pigtail catheter will be a reasonable option for drainage at home. Hyponatremia likely hypovolemic hyponatremia, no further treatment or testing for this as mentioned above Recent fluid cytology showing metastatic adenocarcinoma consistent with primary upper GI/pancreatobiliary tract origin. Elevated CEA 199 1765 Diabetes type 2 insulin-dependent, patient is bit hypoglycemic patient has not been eating much discontinue all oral hypoglycemic agents and cut down the long- acting insulin to half Hypertension
[2020-07-22] MEDS: HYDROmorphone 0.5 MG/0.5 ML SYRINGE IVP PRN ×2 (15:17→19:25)
[2020-07-22] MEDS: ONDANSETRON 4 MG/2 ML VIAL IVP PRN (15:17)
[2020-07-22 15:25] LABS: Hemoglobin A1C 7.5 % (4.0-6.0)
[2020-07-22 17:28] LABS: Glucose,Whole Blood 106 mg/dL (75-99)
[2020-07-22] MEDS: MAGNESIUM OXIDE 400 MG TAB PO SCH (17:36)
[2020-07-22 20:56] LABS: Glucose,Whole Blood 159 mg/dL (75-99)
--- NOTE | 2020-07-22 21:41 | P.CONS ---
History of Present Illness - Reason for Consult Consult date: 07/22/20 Metastatic Cancer Requesting physician: Jerel Mata - Chief Complaint Increased abdominal ascites - History of Present Illness Mr. Acosta is a very pleasant 85-year-old male who recently found to have metastatic cancer after a positive cytology of ascites fluid. He looks younger than his stated age, chronic health conditions including IDDM type II and controlled HTN. He was recently discharged from the hospital after presenting with complaints of 14 pound weight gain and abdominal bloating, progressive over the last 8-9 days. Associated with a decreased appetite, intolerance to warm food, some early satiety. He was discharged on 07/10 after a paracentesis on 07/09 in which 5.9L of ascites fluid was removed. 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 07/11 status post 6.4L removed. He was discharged and presented twice a week for Paracentesis. He had MRI pancrease although suspicious cystic appearing no great area to obtain tissue biopsy. I had a long discussion with patient and his today. We discussed the picture of metastatic cancer and unknown current primary with suspicion of pancreatic primary. Patient was offered EGD for further evaluation and potential biopsy, although he has refused and decided to focus on comfort measures only and sign on with hospice care. Support of patient and wifes decision was given. Review of Systems All systems: negative Constitutional: Reports as per HPI Past Medical History Past Medical History: Cancer, Diabetes Mellitus, Hypertension Additional Past Medical History / Comment(s): DM2, new diagnosis of cancer last week, possibly pancreas per patient History of Any Multi-Drug Resistant Organisms: None Reported Past Surgical History: No Surgical Hx Reported Additional Past Surgical History / Comment(s): large volume paracentesis times 3, colonoscopy Past Anesthesia/Blood Transfusion Reactions: No Reported Reaction Past Psychological History: No Psychological Hx Reported Smoking Status: Never smoker Past Alcohol Use History: None Reported Past Drug Use History: None Reported - Past Family History Mother Family Medical History: Cancer Medications and Allergies Home Medications Medication Instructions Recorded Confirmed Type Bimatoprost [Lumigan .01% Ophth 1 drop RIGHT EYE HS@2100 07/07/20 07/21/20 History Soln] Carboxymethylcellulose Sodium 1 drop RIGHT EYE QID 07/07/20 07/21/20 History [Refresh Tears] Cholecalciferol [Vitamin D3] 400 unit PO W/BRKFST 07/07/20 07/21/20 History Insulin Glargine,Hum.rec.anlog 30 unit SQ HS@2100 07/07/20 07/21/20 History [Lantus Solostar] Magnesium 250 mg PO W/SUPPER 07/07/20 07/21/20 History Ubidecarenone [Co Q-10] 100 mg PO W/LUNCH 07/07/20 07/21/20 History Vitamin B Complex 1 cap PO W/SUPPER 07/07/20 07/21/20 History amLODIPine [Norvasc] 5 mg PO BID-W/MEALS 07/07/20 07/21/20 History sitaGLIPtin PHOSPHATE [Januvia] 50 mg PO DAILY 07/07/20 07/21/20 History Sennosides-Docusate Sodium 1 each PO BID PRN #30 tab 07/12/20 07/21/20 Rx [Senokot-S] metFORMIN HCL [metFORMIN HCL ER] 500 mg PO DAILY 07/12/20 07/21/20 History oxyCODONE-APAP 5-325MG [Percocet 1 each PO Q4HR PRN #16 tab 07/12/20 07/21/20 Rx 5-325 mg] Allergies Allergy/AdvReac Type Severity Reaction Status Date / Time No Known Allergies Allergy Verified 07/21/20 10:51 Physical Exam Vitals: Vital Signs Temp Pulse Resp BP Pulse Ox 07/22/20 19:25 98.0 F 104 H 18 100/69 94 L 07/22/20 14:53 98.7 F 96 16 113/69 94 L 07/22/20 07:00 98.8 F 108 H 18 109/65 95 07/22/20 01:05 98.8 F 100 18 119/65 95 Intake and Output 07/22/20 07/22/20 07/22/20 06:59 14:59 22:59 Other: Voiding Method Toilet # Voids 1 1 - Constitutional General appearance: cooperative, no acute distress - EENT Eyes: EOMI, PERRLA ENT: hard of hearing, NA/AT, normal oropharynx - Neck Neck: normal ROM - Respiratory Respiratory: bilateral: diminished (BLL), rhonchi - Cardiovascular Rhythm: regular Heart sounds: normal: S1, S2 leg Peripheral Edema: bilateral: Trace - Gastrointestinal Abdominal Ascites General gastrointestinal: distended, hepatomegaly, tenderness - Integumentary Integumentary: pale - Neurologic Neurologic: CNII-XII intact - Musculoskeletal Musculoskeletal: strength equal bilaterally - Psychiatric Psychiatric: A&O x's 3, appropriate affect - Constitutional General appearance: cooperative, no acute distress Results CBC & Chem 7: 07/21/20 08:55 07/21/20 08:55 Labs: Abnormal Lab Results - Last 24 Hours (Table) 07/21/20 07/22/20 07/22/20 Range/Units 08:55 08:56 11:28 POC Glucose (mg/dL) 107 H 114 H (75-99) mg/dL Hemoglobin A1c 7.5 H (4.0-6.0) % 07/22/20 07/22/20 Range/Units 17:25 20:54 POC Glucose (mg/dL) 106 H 159 H (75-99) mg/dL Hemoglobin A1c (4.0-6.0) % Assessment and Plan Plan: Abdominal Ultrasound CT scan - abdomen: report reviewed CT scan - chest: report reviewed CT scan - pelvis: report reviewed Assessment and Plan New Diagnosis of Metastatic Adenocarcinoma Cytology Positive from 07/08/20 Paracentesis - Path reveals consistent with upper GI versus Pancreatiobiliary origin - CT abdomen did reveal ascites, Omental caking, hepatomegaly suspicious for GI/peritoneal malignancy. - CT of the chest negative other than an 8 mm right subpleural nodule - MRI did not reveal a significant area to biopsy, EGD offered patient declined Abdominal Ascites (Recurrent) - IR order for repeat paracentesis after discharge - CA 19.9 1765 Plan: - Plan for Repeat Paracentesis Therapeutic - - Patient and have decided to forgo further diagnostics and sign on with hospice care. Doctor attests: I performed a history and physical examination of this patient, developed impression and plan of care. Discussed with dictator. I agree with dictators note, documented as a scribe. Time with Patient: Greater than 30 (Palliative care versus Hospice care versus further work-up versus possible final diagnosis and stage and prognostic factors) Supportive care provided to patient and , all questions answered and understanding stated
[2020-07-22] MEDS: LATANOPROST 0.005% OPHTH DROPS 2.5 ML BTL RIGHT EYE SCH (21:44)
[2020-07-22] MEDS: INSULIN DETEMIR (LEVEMIR) 100 UNIT/ML SYR SQ SCH (21:45)
[2020-07-23 01:38] VITALS: RESP 16
[2020-07-23] MEDS: ONDANSETRON 4 MG/2 ML VIAL IVP PRN (02:09)
[2020-07-23 05:48] LABS: Glucose,Whole Blood 147 mg/dL (75-99)
[2020-07-23 07:30] LABS: Glucose,Whole Blood 177 mg/dL (75-99)
[2020-07-23] MEDS: INSULIN ASPART (NovoLOG) 100 UNIT/ML VIAL SQ SCH ×4 (07:39→21:56)
[2020-07-23] MEDS: oxyCODONE ER 15 MG TAB.ER.12H PO SCH ×2 (07:45→23:29)
[2020-07-23] MEDS: LACTULOSE 20 GM/30 ML CUP PO SCH ×2 (07:46→21:56)
[2020-07-23] MEDS: CHOLECALCIFEROL 400 UNIT TAB PO SCH (07:46)
[2020-07-23] MEDS: ARTIFICIAL TEARS-HYPROMELLOSE DROPS 15 ML BTL RIGHT EYE SCH ×4 (07:46→22:03)
[2020-07-23 11:43] LABS: Glucose,Whole Blood 198 mg/dL (75-99)
[2020-07-23] MEDS: HYDROmorphone 0.5 MG/0.5 ML SYRINGE IVP PRN (11:53)
[2020-07-23] MEDS ORDERED: NA PHOS,M-B/NA PHOS,DI-BA 133 ML ENEMA RECTAL ONE (14:42)
--- NOTE | 2020-07-23 14:53 | US ---
Ultrasound-guided paracentesis. DATE OF EXAM: 07/23/2020 CLINICAL HISTORY: Ascites The procedure was discussed with the patient. The risks, complications, benefits, and alternatives we re discussed and any questions were answered. Informed consent was obtained. The patient was placed s upine on the ultrasound table and prepped and draped in the usual sterile fashion. All elements of maximal barrier technique were utilized. Under ultrasound guidance, access into the right lower quadrant was obtained, via the paracentesis catheter system and direct ultrasound guidanc e. Approximately 3.5 liters of straw-colored fluid was removed. The patient was stable throughout the pr ocedure and remained stable upon discharge from Department of Radiology. IMPRESSION: Successful paracentesis under ultrasound guidance.
--- NOTE | 2020-07-23 14:54 | P.CONS ---
History of Present Illness - Reason for Consult Consult date: 07/22/20 EGD Requesting physician: Herbert Fuentes - Chief Complaint Abdominal pain, ascites - History of Present Illness 85-year-old male with a known medical history significant for metastatic cancer of unknown primary who presented to the hospital due to complaints of abdominal bloating and distention. 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 The patient underwent paracentesis on that admission and reports a total of 3 prior therapeutic paracentesis. The order was placed for standing and once weekly. However the patient came to the hospital due to worsening abdominal distention and pain. The patient has been seen by the oncology service but does not wish to pursue further treatment and was hoping for hospice services. GI was consult is for possible EGD as the patient was not interested in pursuing endoscopic ultrasound at a tertiary facility. Review of Systems REVIEW OF SYSTEMS: CONSTITUTIONAL: Denies any fevers, chills, weight change or fatigue. CARDIOVASCULAR: Denies any chest pain, palpitations high or low blood pressures RESPIRATORY: Denies any shortness of breath, hemoptysis or cough. GENITOURINARY: No dysuria or hematuria. MUSCULOSKELETAL: No weakness reported. SKIN: Denies any new rashes or lesions, jaundice or pallor. PSYCHIATRIC: Denies any depression or anxiety. NEUROLOGY: Denies headache, denies any new focal deficits. EARS/NOSE/THROAT: No recent hearing change, congestion, nasal discharge or sore throat. EYES: No pain in eyes, discharge or change in vision. GASTROINTESTINAL: As per HPI. Past Medical History Past Medical History: Cancer, Diabetes Mellitus, Hypertension Additional Past Medical History / Comment(s): DM2, new diagnosis of cancer last week, possibly pancreas per patient History of Any Multi-Drug Resistant Organisms: None Reported Past Surgical History: No Surgical Hx Reported Additional Past Surgical History / Comment(s): large volume paracentesis times 3, colonoscopy Past Anesthesia/Blood Transfusion Reactions: No Reported Reaction Past Psychological History: No Psychological Hx Reported Smoking Status: Never smoker Past Alcohol Use History: None Reported Past Drug Use History: None Reported - Past Family History Mother Family Medical History: Cancer Medications and Allergies Home Medications Medication Instructions Recorded Confirmed Type Bimatoprost [Lumigan .01% Ophth 1 drop RIGHT EYE HS@2100 07/07/20 07/21/20 History Soln] Carboxymethylcellulose Sodium 1 drop RIGHT EYE QID 07/07/20 07/21/20 History [Refresh Tears] Cholecalciferol [Vitamin D3] 400 unit PO W/BRKFST 07/07/20 07/21/20 History Magnesium 250 mg PO W/SUPPER 07/07/20 07/21/20 History Ubidecarenone [Co Q-10] 100 mg PO W/LUNCH 07/07/20 07/21/20 History Vitamin B Complex 1 cap PO W/SUPPER 07/07/20 07/21/20 History sitaGLIPtin PHOSPHATE [Januvia] 50 mg PO DAILY 07/07/20 07/21/20 History Sennosides-Docusate Sodium 1 each PO BID PRN #30 tab 07/12/20 07/21/20 Rx [Senokot-S] oxyCODONE-APAP 5-325MG [Percocet 1 each PO Q4HR PRN #16 tab 07/12/20 07/21/20 Rx 5-325 mg] Insulin Detemir (Levemir) [Levemir] 15 unit SQ HS@2100 syr 07/23/20 Rx Lactulose [Cephulac] 20 gm PO BID PRN #200 ml 07/23/20 Rx amLODIPine [Norvasc] 5 mg PO DAILY #0 07/23/20 07/21/20 Rx oxyCODONE ER [OxyCONTIN] 15 mg PO Q12HR #6 tab.er.12h 07/23/20 Rx traMADol HCL [Ultram] 50 mg PO Q6HR PRN 3 Days #12 tab 07/23/20 Rx Allergies Allergy/AdvReac Type Severity Reaction Status Date / Time No Known Allergies Allergy Verified 07/21/20 10:51 Physical Exam Vitals: Vital Signs Temp Pulse Resp BP Pulse Ox 07/22/20 07:00 98.8 F 108 H 18 109/65 95 07/22/20 01:05 98.8 F 100 18 119/65 95 07/21/20 19:00 98.5 F 107 H 15 106/70 95 Intake and Output 07/21/20 07/22/20 07/22/20 22:59 06:59 14:59 Intake Total 225 Balance 225 Intake: Intake, IV Titration 225 Amount Sodium Chloride 0.9% 1, 225 000 ml @ 75 mls/hr IV . [id number] ONE Rx#:[id number] Other: Voiding Method Toilet # Voids 2 1 1 On physical examination, patient appears comfortable in no apparent distress. HEAD: Normocephalic, atraumatic. EYES: No scleral icterus. No conjunctival injection. MOUTH: No lesions, tongue midline. NECK: Trachea midline, no gross abnormalities. CHEST: Clear to auscultation with no wheezing or rhonchi appreciated. HEART: S1-S2 appreciated. ABDOMEN: Soft, moderately distended. Bowel sounds are positive. No organomegaly. No guarding or rigidity. EXTREMITIES: +1 pedal edema. SKIN: No rashes, no jaundice. NEUROLOGIC: Alert and oriented x3. No focal deficits. Results CBC & Chem 7: 07/21/20 08:55 07/21/20 08:55 Labs: Abnormal Lab Results - Last 24 Hours (Table) 07/21/20 07/21/20 07/22/20 Range/Units 16:29 20:20 08:56 POC Glucose (mg/dL) 175 H 230 H 107 H (75-99) mg/dL 07/22/20 Range/Units 11:28 POC Glucose (mg/dL) 114 H (75-99) mg/dL CT scan - chest: report reviewed (Computed tomography scan of the chest negative for PE with findings of ascites.) Assessment and Plan (1) Metastatic adenocarcinoma Narrative/Plan: 85-year-old male with recent diagnosis of metastatic adenocarcinoma of unknown primary with suspicion for upper gastrointestinal pathology versus primary pancreaticobiliary pathology. GI consult was placed for possible upper endoscopy. Extensive discussion with the patient and his with this time are interested in hospice services and are not interested in endoscopic evaluation. Current Visit: Yes Status: Acute Code(s): C79.9 - SECONDARY MALIGNANT NEOPLASM OF UNSPECIFIED SITE SNOMED Code(s): 001827823 (2) Ascites Current Visit: Yes Status: Acute Priority: High Code(s): R18.8 - OTHER ASCITES SNOMED Code(s): 500280073 (3) Abdominal pain Current Visit: No Status: Acute Code(s): R10.9 - UNSPECIFIED ABDOMINAL PAIN SNOMED Code(s): 19204764 Plan: Supportive care Okay for diet Oncology service following the patient No plans for endoscopic evaluation as per the wishes of the patient and his , with risks, benefits and complications of the procedure discussed with the patient and his extensively and at this time they're interested in hospice services At this time the GI service will stand by, please call us back with any questions or concerns Thank you for allowing us to participate in the care of the patient
[2020-07-23 16:43] LABS: Glucose,Whole Blood 174 mg/dL (75-99)
--- NOTE | 2020-07-23 17:13 | P.PN ---
Subjective 85-year-old pleasant gentleman was admitted to for pain control, abdominal distention, ascites. And some mild shortness of breath. Patient is presently on to discharge and he doesn't any oxygen at home. We will discontinue on's in and see how patient feels and will ablate the patient. Patient most probably has pancreatic cancer although this was not proven by any biopsy as his previous endoscopic ultrasound did not reveal any adenocarcinoma of the pancreas although patient has a highly elevated CA-19-9. Oncology evaluate the patient. They recommended repeat endoscopic ultrasound of the pancreatic mass. Had a lengthy discussion with the patient patient doesn't want to pursue any more biopsy at any more further testing and doesn't want to pursue any treatment for pancreatic cancer. 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 Patient is bit hyponatremic initially ordered basic metabolic profile testing that patient will doesn't wanted to pursue any other treatment and wanted hospice only and consulting hospice and will discontinue any further testing at this time. Had a lengthy discussion with the patient and patient's was at bedside. Patient is quite a bit constipated didn't move his bowels for last 7 days 07/23/2020 Patient underwent therapeutic paracentesis with removal of 3.5 L of straw- colored fluid. Patient still didn't have a bowel movement. Patient is on multiple opiate medications which is contributing to his constipation will order an MRI patient move his bowels patient will be discharged on [facility] will keep him here until he has a bowel movement avoid any fecal impaction. Hospice evaluated the patient and the patient the family wanted to wait for couple days before his sign him for hospice please refer to their documentation for further details Constitutional: Denied any fatigue denied any fever. Cardio vascular: denied any chest pain, palpitations Gastrointestinal denied any nausea vomiting Pulmonary: Denied any shortness of breath cough Neurologic denied any new focal deficits All inpatient medications were reviewed and appropriate changes in these medications as dictated in the interval history and assessment and plan. Objective - Vital Signs Vital signs: Vital Signs Temp 98.0 F 07/23/20 15:00 Pulse 95 07/23/20 15:00 Resp 16 07/23/20 13:38 BP 113/68 07/23/20 15:00 Pulse Ox 90 L 07/23/20 15:00 Intake & Output 07/22/20 07/23/2007/23/20 18:59 06:59 18:59 Intake Total 225 Balance 225 Intake: Intake, IV Titration 225 Amount Sodium Chloride 0.9% 1, 225 000 ml @ 75 mls/hr IV . [id number] ONE Rx#:[id number] Other: Voiding Method Toilet # Voids 1 3 1 - Exam PHYSICAL EXAMINATION: GENERAL: The patient is alert and oriented x3, not in any acute distress. Well developed, well nourished. HEENT: Pupils are round and equally reacting to light. EOMI. No scleral icterus. No conjunctival pallor. Normocephalic, atraumatic. No pharyngeal erythema. No thyromegaly. CARDIOVASCULAR: S1 and S2 present. No murmurs, rubs, or gallops. PULMONARY: Chest is clear to auscultation, no wheezing or crackles. ABDOMEN: Is distended does have some ascites improved compared to yesterday bowel sounds are present but sluggish, . No palpable organomegaly. MUSCULOSKELETAL: No joint swelling or deformity. EXTREMITIES: No cyanosis, clubbing, or pedal edema. NEUROLOGICAL: Gross neurological examination did not reveal any focal deficits. SKIN: No rashes. - Labs CBC & Chem 7: 07/21/20 08:55 07/21/20 08:55 Labs: Abnormal Lab Results - Last 24 Hours (Table) 07/22/20 07/22/20 07/23/20 Range/Units 17:25 20:54 05:45 POC Glucose (mg/dL) 106 H 159 H 147 H (75-99) mg/dL 07/23/20 07/23/20 07/23/20 Range/Units 07:29 11:42 16:42 POC Glucose (mg/dL) 177 H 198 H 174 H (75-99) mg/dL Assessment and Plan Plan: Newly diagnosed metastatic adenocarcinoma GI versus pancreatobiliary, patient doesn't want to pursue any more treatment will consult hospice as per request of the patient. Patient doesn't want to pursue any more testing either. Recurrent ascites/malignant ascites, she is status post ultrasound-guided paracentesis with removal of 3.5 L. -Constipation: Severe Secondary to opiates edema was ordered apart from the present regimen of senna and MiraLAX and lactulose Hyponatremia likely hypovolemic hyponatremia, no further treatment or testing fo r this as mentioned above Recent fluid cytology showing metastatic adenocarcinoma consistent with primary upper GI/pancreatobiliary tract origin. Elevated CEA 199 1765 Diabetes type 2 insulin-dependent, patient is bit hypoglycemic patient has not been eating much discontinue all oral hypoglycemic agents and cut down the long- acting insulin to half Hypertension Type 2 diabetes mellitus: Patient was a hypoglycemic because of which cut down his insulin as well as by mouth hypoglycemic agents blood sugars are better today
[2020-07-23] MEDS: MAGNESIUM OXIDE 400 MG TAB PO SCH (18:06)
[2020-07-23 21:27] LABS: Glucose,Whole Blood 181 mg/dL (75-99)
[2020-07-23] MEDS: oxyCODONE-APAP 5-325MG 1 EACH TAB PO PRN (21:52)
[2020-07-23] MEDS: INSULIN DETEMIR (LEVEMIR) 100 UNIT/ML SYR SQ SCH (21:56)
[2020-07-23] MEDS: LATANOPROST 0.005% OPHTH DROPS 2.5 ML BTL RIGHT EYE SCH (22:02)
[2020-07-24 06:49] LABS: Glucose,Whole Blood 132 mg/dL (75-99)
[2020-07-24] MEDS: CHOLECALCIFEROL 400 UNIT TAB PO SCH (07:03)
[2020-07-24] MEDS: oxyCODONE ER 15 MG TAB.ER.12H PO SCH (07:03)
[2020-07-24] MEDS: LACTULOSE 20 GM/30 ML CUP PO SCH (07:03)
[2020-07-24] MEDS: INSULIN ASPART (NovoLOG) 100 UNIT/ML VIAL SQ SCH ×2 (07:04→12:01)
[2020-07-24] MEDS: ARTIFICIAL TEARS-HYPROMELLOSE DROPS 15 ML BTL RIGHT EYE SCH ×2 (07:04→12:01)
[2020-07-24 07:58] VITALS: BP 136/67; PULSE 109; TEMP 97.6
[2020-07-24 11:54] LABS: Glucose,Whole Blood 146 mg/dL (75-99)
--- NOTE | 2020-07-24 12:02 | P.DS ---
Providers Date of admission: 07/21/20 10:42 Attending physician: Tami Manzanares Consults: 07/21/20 10:56 Consult Physician Urgent Consulting Provider: Herbert Fuentes Consult Reason/Comments: Metastatic cancer Do you want consulting provider notified?: Yes Primary care physician: Caitlin Donny [facility] Course: 85-year-old pleasant gentleman was admitted to for pain control, abdominal distention, ascites. And some mild shortness of breath. Patient is presently on to discharge and he doesn't any oxygen at home. We will discontinue on's in and see how patient feels and will ablate the patient. Patient most probably has pancreatic cancer although this was not proven by any biopsy as his previous endoscopic ultrasound did not reveal any adenocarcinoma of the pancreas although patient has a highly elevated CA-19-9. Oncology evaluate the patient. They recommended repeat endoscopic ultrasound of the pancreatic mass. Had a lengthy discussion with the patient patient doesn't want to pursue any more biopsy at any more further testing and doesn't want to pursue any treatment for pancreatic cancer. 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 Patient is bit hyponatremic initially ordered basic metabolic profile testing that patient will doesn't wanted to pursue any other treatment and wanted hospice only and consulting hospice and will discontinue any further testing at this time. Had a lengthy discussion with the patient and patient's was at bedside. Patient is quite a bit constipated didn't move his bowels for last 7 days 07/23/2020 Patient underwent therapeutic paracentesis with removal of 3.5 L of straw- colored fluid. Patient still didn't have a bowel movement. Patient is on multiple opiate medications which is contributing to his constipation will order an MRI patient move his bowels patient will be discharged on [facility] will keep him here until he has a bowel movement avoid any fecal impaction. Hospice evaluated the patient and the patient the family wanted to wait for couple days before his sign him for hospice please refer to their documentation for further details 07/24/2020 Patient had multiple bowel movements since yesterday. Patient is clinically doing well will be discharged today and patient the will most probably be initiated on hospice and a day 2. PHYSICAL EXAMINATION: GENERAL: The patient is alert and oriented x3, not in any acute distress. Well developed, well nourished. HEENT: Pupils are round and equally reacting to light. EOMI. No scleral icterus. No conjunctival pallor. Normocephalic, atraumatic. No pharyngeal erythema. No thyromegaly. CARDIOVASCULAR: S1 and S2 present. No murmurs, rubs, or gallops. PULMONARY: Chest is clear to auscultation, no wheezing or crackles. ABDOMEN: Is distended does have some ascites improved compared to yesterday bowel sounds are present but sluggish, . No palpable organomegaly. MUSCULOSKELETAL: No joint swelling or deformity. EXTREMITIES: No cyanosis, clubbing, or pedal edema. NEUROLOGICAL: Gross neurological examination did not reveal any focal deficits. SKIN: No rashes. Assessment and Plan Plan: Newly diagnosed metastatic adenocarcinoma GI versus pancreatobiliary, patient doesn't want to pursue any more treatment will consult hospice as per request of the patient. Patient doesn't want to pursue any more testing either. Recurrent ascites/malignant ascites, she is status post ultrasound-guided paracentesis with removal of 3.5 L. -Constipation: Severe Secondary to opiates, resolved at this time patient will be discharged on the lactulose as well as on as-needed basis for constipation. Hyponatremia likely hypovolemic hyponatremia, no further treatment or testing for this as mentioned above Recent fluid cytology showing metastatic adenocarcinoma consistent with primary upper GI/pancreatobiliary tract origin. Elevated CEA 199 1765 Diabetes type 2 insulin-dependent, patient is bit hypoglycemic admission patient's long-acting insulin was cut to half and patient was hypoglycemic agents were discontinued as well Hypertension Plan - Discharge Summary Discharge Rx Participant: Yes New Discharge Prescriptions: New Lactulose [Cephulac] 20 gm PO BID PRN #200 ml PRN Reason: Constipation Insulin Detemir (Levemir) [Levemir] 15 unit SQ HS@2100 syr oxyCODONE ER [OxyCONTIN] 15 mg PO Q12HR #6 tab.er.12h traMADol HCL [Ultram] 50 mg PO Q6HR PRN 3 Days #12 tab PRN Reason: Pain Continue Ubidecarenone [Co Q-10] 100 mg PO W/LUNCH Bimatoprost [Lumigan .01% Ophth Soln] 1 drop RIGHT EYE HS@2100 sitaGLIPtin PHOSPHATE [Januvia] 50 mg PO DAILY Vitamin B Complex 1 cap PO W/SUPPER Magnesium 250 mg PO W/SUPPER Cholecalciferol [Vitamin D3] 400 unit PO W/BRKFST Carboxymethylcellulose Sodium [Refresh Tears] 1 drop RIGHT EYE QID oxyCODONE-APAP 5-325MG [Percocet 5-325 mg] 1 each PO Q4HR PRN #16 tab PRN Reason: Severe Pain Sennosides-Docusate Sodium [Senokot-S] 1 each PO BID PRN #30 tab PRN Reason: Constipation Changed amLODIPine [Norvasc] 5 mg PO DAILY #0 Discontinued Insulin Glargine,Hum.rec.anlog [Lantus Solostar] 30 unit SQ HS@2100 metFORMIN HCL [metFORMIN HCL ER] 500 mg PO DAILY Discharge Medication List Bimatoprost [Lumigan .01% Ophth Soln] 1 drop RIGHT EYE HS@2100 07/07/20 [History] Carboxymethylcellulose Sodium [Refresh Tears] 1 drop RIGHT EYE QID 07/07/20 [History] Cholecalciferol [Vitamin D3] 400 unit PO W/BRKFST 07/07/20 [History] Magnesium 250 mg PO W/SUPPER 07/07/20 [History] Ubidecarenone [Co Q-10] 100 mg PO W/LUNCH 07/07/20 [History] Vitamin B Complex 1 cap PO W/SUPPER 07/07/20 [History] sitaGLIPtin PHOSPHATE [Januvia] 50 mg PO DAILY 07/07/20 [History] Sennosides-Docusate Sodium [Senokot-S] 1 each PO BID PRN #30 tab 07/12/20 [Rx] oxyCODONE-APAP 5-325MG [Percocet 5-325 mg] 1 each PO Q4HR PRN #16 tab 07/12/20 [Rx] Insulin Detemir (Levemir) [Levemir] 15 unit SQ HS@2100 syr 07/23/20 [Rx] Lactulose [Cephulac] 20 gm PO BID PRN #200 ml 07/23/20 [Rx] amLODIPine [Norvasc] 5 mg PO DAILY #0 07/23/20 [Rx] oxyCODONE ER [OxyCONTIN] 15 mg PO Q12HR #6 tab.er.12h 07/23/20 [Rx] traMADol HCL [Ultram] 50 mg PO Q6HR PRN 3 Days #12 tab 07/23/20 [Rx] Follow up Appointment(s)/Referral(s): Caitlin Hines MD [Primary Care Provider] - 3 Days [facility], [NON-STAFF] - As Needed Discharge Disposition: HOME WITH HOME HEALTH SERVICES
== END 2020-07-24 14:29 | disposition home or self-care (01) | DRG 375 ==
LOC: EC 08:30 → 4SSUR 10:42
PROVIDERS: ADMIT Internal Medicine; ATTEND Internal Medicine
PROC: 0W9G3ZZ Drainage of Peritoneal Cavity, Percutaneous Approach (ICD-10-PCS; principal; 2020-07-23)
DX: C26.9 Malignant neoplasm of ill-defined sites within the digestive system (principal); E87.1 Hypo-osmolality and hyponatremia; R18.0 Malignant ascites; K86.1 Other chronic pancreatitis; C25.9 Malignant neoplasm of pancreas, unspecified; C61 Malignant neoplasm of prostate; F32.9 Major depressive disorder, single episode, unspecified; E86.1 Hypovolemia; I10 Essential (primary) hypertension; E87.70 Fluid overload, unspecified; E11.9 Type 2 diabetes mellitus without complications; K59.03 Drug induced constipation; T38.0X5A Adverse effect of glucocorticoids and synthetic analogues, initial encounter; Z79.4 Long term (current) use of insulin; Z79.899 Other long term (current) drug therapy; Z98.890 Other specified postprocedural states; Z80.9 Family history of malignant neoplasm, unspecified
CPT/HCPCS: 36415; 49083; 71046; 71275; 80053; 83036; 83605; 83735; 84484; 85025; 85379; 85610; 85730; 93005; 96374; 99285